=== PATIENT | male | born 1945 | race Caucasian/White ===

== ENCOUNTER 2017-12-13 12:47 | Emergency (ER) | payer MEDICARE ==
[2017-12-13] MEDS: fentaNYL 100 MCG/2 ML INJECTION (J3010) IV (13:42)
[2017-12-13 13:50] LABS: BASO # 0.1 10^3/uL (0.0-0.2); BASO % 0.7 % (0.0-1.0); EOS # 0.2 10^3/uL (0.0-0.50); EOS % 1.8 % (0.0-3.0); HEMATOCRIT 40.3 % (42.0-52.0); HEMOGLOBIN 13.8 g/dl (14.0-18.0); IMMATURE GRANULOCYTE # 0.1 10^3/uL (0-0); IMMATURE GRANULOCYTE % 0.7 % (0-0); LYMPH # 1.9 10^3/uL (1.5-4.5); LYMPH % 21.8 % (24.0-44.0); MEAN CORPUSCULAR HEMOGLOBIN 33.1 pg (27.0-33.0); MEAN CORPUSCULAR HGB CONC 34.2 g/dl (32.0-36.5); MEAN CORPUSCULAR VOLUME 96.6 fl (80.0-96.0); MONO # 0.9 10^3/uL (0.0-0.8); MONO % 9.9 % (0.0-5.0); NEUTROPHILS # 5.8 10^3/uL (1.8-7.7); NEUTROPHILS % 65.1 % (36.0-66.0); PLATELET COUNT, AUTOMATED 277 10^3/uL (150-450); RED BLOOD COUNT 4.17 10^6/uL (4.30-6.10); RED CELL DISTRIBUTION WIDTH 12.7 % (11.5-14.5); WHITE BLOOD COUNT 8.9 10^3/uL (4.0-10.0)
[2017-12-13 14:01] LABS: APPEARANCE, URINE CLEAR (CLEAR); BACTERIA, URINE AUTO NEGATIVE (NEGATIVE); BILIRUBIN, URINE AUTO NEGATIVE (NEGATIVE); BLOOD, URINE BLOOD NEGATIVE (NEGATIVE); COLOR, URINE YELLOW (YELLOW); GLUCOSE, URINE (UA) AUTO NEGATIVE (NEGATIVE); INR 0.97; KETONE, URINE AUTO TRACE mg/dL (NEGATIVE); LEUKOCYTE ESTERASE, URINE AUTO NEGATIVE (NEGATIVE); NITRITE, URINE AUTO NEGATIVE (NEGATIVE); PROTEIN, URINE AUTO NEGATIVE (NEGATIVE); RBC, URINE AUTO 2 /HPF (0-3); SPECIFIC GRAVITY URINE AUTO 1.013 (1.002-1.035); SQUAMOUS EPITHELIAL CELL UR AU 0 /HPF (0-6); UROBILINOGEN, URINE AUTO 0.2 mg/dL (0.0-2.0); WBC, URINE AUTO 0 /HPF (0-3)
[2017-12-13 14:10] LABS: ANION GAP 8 MEQ/L (8-16); BLOOD UREA NITROGEN 17 MG/DL (7-18); CALCIUM LEVEL 8.4 MG/DL (8.8-10.2); CARBON DIOXIDE LEVEL 26 MEQ/L (21-32); CHLORIDE LEVEL 108 MEQ/L (98-107); CREATININE FOR GFR 1.58 MG/DL (0.70-1.30); GLOMERULAR FILTRATION RATE 46.3 (>42); GLUCOSE, FASTING 104 MG/DL (83-110); POTASSIUM SERUM 4.7 MEQ/L (3.5-5.1); SODIUM LEVEL 142 MEQ/L (136-145)
[2017-12-13] MEDS ORDERED: ISOVUE-370 76% 100ML VIAL (Q9967) As Ordered (14:12)
[2017-12-13] MEDS: KETOROLAC 30 MG/ML VIAL (J1885) IV (16:17)
[2017-12-13] MEDS: OXYCODONE/APAP 5MG/325MG(BULK FOR ED) 1 TABLET PO (16:30)
== END 2017-12-13 16:39 | disposition home or self-care (01) ==
LOC: M ED 12:47
DX: M54.9 Dorsalgia, unspecified (principal); N28.9 Disorder of kidney and ureter, unspecified; N40.0 Benign prostatic hyperplasia without lower urinary tract symptoms; M51.26 Other intervertebral disc displacement, lumbar region; F17.200 Nicotine dependence, unspecified, uncomplicated; M51.36 Other intervertebral disc degeneration, lumbar region; N28.1 Cyst of kidney, acquired; J84.112 Idiopathic pulmonary fibrosis; Z79.899 Other long term (current) drug therapy
CPT/HCPCS: Q9967

== ENCOUNTER 2020-06-10 17:34 | Inpatient (IN) | payer MEDICARE ==
[~2020-06-10] VITALS: Ht 170.2 cm; Wt 73.6 kg
[~2020-06-10 17:34] MED LIST: OMEP1CAP73 PO; TERA2CAP3
[2020-06-10] MEDS ORDERED: NS 500 ML IV ONE (18:15)
[2020-06-10] MEDS ORDERED: dexameTHASONE 20MG/5ML VIAL (J1100 PER 1MG) IV ONE (18:15)
[2020-06-10 18:31] LABS: VENOUS BASE EXCESS 0.7 (-2.0-2.0); VENOUS HCO3 26.2 MEQ/L (23.0-27.0); VENOUS O2 SATURATION 68.2 % (60.0-80.0); VENOUS PARTIAL PRESSURE CO2 45.6 mmHg (38.0-50.0); VENOUS PH 7.378 UNITS (7.330-7.430); VENOUS STANDARD HCO3 24.4 MEQ/L; VENOUS TOTAL CO2 27.6 MEQ/L (24.0-28.0)
[2020-06-10 18:34] LABS: BASO % 0.4 % (0.0-1.0); EOS # 0.1 10^3/uL (0.0-0.5); EOS % 1.4 % (0.0-3.0); HEMATOCRIT 39.2 % (42.0-52.0); HEMOGLOBIN 13.2 g/dl (13.5-17.5); LYMPH # 1.6 10^3/uL (1.5-5.0); LYMPH % 15.7 % (24.0-44.0); MEAN CORPUSCULAR HEMOGLOBIN 31.7 pg (27.0-33.0); MEAN CORPUSCULAR HGB CONC 33.7 g/dl (32.0-36.5); MEAN CORPUSCULAR VOLUME 94.2 fl (80.0-96.0); MONO # 1.1 10^3/uL (0.0-0.8); MONO % 10.7 % (0.0-5.0); NEUTROPHILS # 7.3 10^3/uL (1.5-8.5); NEUTROPHILS % 71.4 % (36.0-66.0); PLATELET COUNT, AUTOMATED 315 10^3/uL (150-450); RED BLOOD COUNT 4.16 10^6/uL (4.30-6.10); WHITE BLOOD COUNT 10.2 10^3/uL (4.0-10.0)
[2020-06-10] MEDS: COMBIVENT RESPIMAT 100-20MCG INHALER 4GM INH SCH (18:40)
[2020-06-10 18:51] LABS: INR 0.98; PROTHROMBIN TIME 12.7 SECONDS (11.8-14.0)
[2020-06-10 19:15] LABS: ALBUMIN 3.3 GM/DL (3.2-5.2); BILIRUBIN,DIRECT 0.1 MG/DL (0.0-0.2); BILIRUBIN,TOTAL 0.3 MG/DL (0.2-1.0); THYROID STIMULATING HORMONE 2.53 uIU/ML (0.358-3.740); THYROXINE (T4) 10.4 UG/DL (4.5-12.0); TOTAL PROTEIN 6.8 GM/DL (6.4-8.2)
[2020-06-10] MEDS ORDERED: MELO15TA28 PO (19:28)
[2020-06-10] MEDS ORDERED: TERA5CAP3 PO (19:28)
[2020-06-10] MEDS ORDERED: LEVALBUTEROL 1.25 MG/0.5 ML CONCENTRATE NEB INH PRN (22:45)
[2020-06-10] MEDS ORDERED: FUROSEMIDE 40MG/4ML VIAL (J1940) IV ONE (22:45)
--- NOTE | 2020-06-10 22:58 | HPEPDOC ---
General Date of Admission Jun 10, 2020 at 22:31 Date of Service: Jun 10, 2020 Chief Complaint The patient is a 74-year-old male Who presented to the hospital with complaints of shortness of breath History of Present Illness Patient is a 74-year-old male with a PMHx of Seasonal allergies, GERD / Hiatal hernia . Presented to the hospital with complaints of shortness of breath. Patient notes that hes been experiencing progressive shortness of breath over the duration of one month. Patient reports that hes been experiencing a cough with clear sputum. Denies any blood. Denies any chest pain or palpitations. Denies any recent fevers or chills. Denies any lower extremity swelling. Patient denies any nausea or vomiting. Does report some abdominal discomfort that he attributes to his hiatal hernia has reported some constipation. His most recent bowel movement was Thursday. Denies any urinary discomfort. Patient has followed up with surgery recently for his hiatal hernia. Reports loss of appetite and decrease in his weight. Home Medications Scheduled Meloxicam (Meloxicam) 15 Mg Tablet, 15 MG PO DAILY, (Reported) Omeprazole (Omeprazole) 20 Mg Cap, 20 MG PO QAM, (Reported) Terazosin HCl (Terazosin HCl) 5 Mg Capsule, 5 MG PO QPM, (Reported) Allergies Coded Allergies: No Known Allergies (Verified Allergy, Unknown, 06/10/20) Past Medical History Medical History Seasonal allergies GERD / Hiatal hernia Surgical History Cervical neck surgery s/p repair Reports multiple fingers were fractured Ingrown toenail surgery bilaterally Family History - Family history reviewed and noncontributory Social History - Denies the use of illicit drugs; patient reports that hes a smoker of greater than 30 years, but has reduced his cigarette consumption; her port social alcohol use - Denies recent travel or sick contacts - Lives alone - 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; 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 Vital Signs - Vitals: BP [160/98], HR [88], RR [18], Sat [98%NC2L], Temp [96.2F] - General: Lying in bed, Speaking in full sentences, awake / alert / oriented x3 - HEENT: NC, AT, PERRLA - CVS: RRR, +S1S2 - Lungs: Fair air entry bilaterally, No appreciable wheezing, but bilateral lower lung crackles noted, - Abdomen: Soft, Non-distended, Mild tenderness at epigastrium - Extremities: No lower extremity edema, No calf tenderness - Neuro: No focal motor or sensory deficit - Skin: No visible rashes Laboratory Data Labs 24H Laboratory Tests 2 06/10/20 18:24: Immature Granulocyte % (Auto) 0.4, Neutrophils (%) (Auto) 71.4H, Lymphocytes (%) (Auto) 15.7L, Monocytes (%) (Auto) 10.7H, Eosinophils (%) (Auto) 1.4, Basophils (%) (Auto) 0.4, Neutrophils # (Auto) 7.3, Lymphocytes # (Auto) 1.6, Monocytes # (Auto) 1.1H, Eosinophils # (Auto) 0.1, Basophils # (Auto) 0.0, Nucleated Red Blood Cells % (auto) 0.0, Prothrombin Time 12.7, Prothromb Time International Ratio 0.98, Blood Gas Bicarbonate Standard 24.4, Venous Blood pH 7.378, Venous Blood Partial Pressure CO2 45.6, Venous Blood Partial Pressure O2 34.0, Venous Blood Total Carbon Dioxide 27.6, Venous Blood HCO3 26.2, Venous Blood Oxygen Saturation 68.2, Venous Blood Base Excess 0.7, Total Bilirubin 0.3, Direct Bilirubin 0.1, Aspartate Amino Transf (AST/SGOT) 34, Alanine Aminotransferase (ALT/SGPT) 40, Alkaline Phosphatase 89, ZO-Srd-X-Type Natriuretic Peptide 491H, Total Protein 6.8, Albumin 3.3, Albumin/Globulin Ratio 0.9, Thyroid Stimulating Hormone (TSH) 2.530, Thyroxine (T4) 10.4 06/10/20 18:28: POC Troponin I (Misc) 0.01 06/10/20 18:31: POC Glucose (Misc Panel) 114H, POC Sodium (Misc Panel) 134L, POC Potassium (Misc Panel) 3.9, POC Chloride (Misc Panel) 99, POC Total CO2 (Misc Panel) 23.0, POC Blood Urea Nitrogen (Misc Panel 18, POC Ionized Calcium (Misc Panel) 4.7, POC Creatinine (Misc Panel) 0.9, POC Hematocrit (Misc Panel) 42.0 06/10/20 22:20: Lipase 64L CBC/BMP Laboratory Tests 06/10/20 18:24 Microbiology Microbiology 06/10/20 Blood Culture, Received Pending 06/10/20 Blood Culture, Received Pending Plan / VTE VTE Prophylaxis Ordered?: Yes Plan Plan Shortness of breath - possibly 2/2 fluid overload, possibly 2/2 COPD - Presented to the hospital with complaints of shortness of breath slowly progressive over one month - She reports an associated cough with clear sputum - Physical reveals bibasilar crackles - BNP elevated - CXR reveals vascular congestion - Troponin negative - EKG reviewed - Will Check CT chest / ECHO / Telemetry monitoring / Strict ins-outs / Daily weight / Fluid restriction - Will give single dose of Furosemide and assess urine output - Will start inhaled therapy Abdominal pain - Hx of GERD / Hiatal hernia - Physical reveals epigastric tenderness - Will check CT abdomen / Lipase - Will c/w Omeprazole Seasonal allergies - Currently non on any medications BPH - c/w Terazosin DVT prophylaxis - Will start Lovenox Review of Systems Other Systems 10 point review of systems complete, all negative otherwise stated in HPI NADEEM LOWE MD Jun 10, 2020 22:58
[2020-06-10] MEDS: GASTROGRAFIN SOLUTION 30ML PO SCH ×2 (23:20→23:45)
[2020-06-11] MEDS: LEVALBUTEROL 1.25 MG/0.5 ML CONCENTRATE NEB INH SCH ×7 (00:47→23:12)
[2020-06-11] MEDS: COMBIVENT RESPIMAT 100-20MCG INHALER 4GM INH SCH ×2 (00:47→00:48)
--- NOTE | 2020-06-11 01:56 | REPVR ---
PROCEDURE INFORMATION: Exam: CT Abdomen And Pelvis Without Contrast Exam date and time: 06/11/2020 1:02 AM Age: 74 years old Clinical indication: Abdominal pain TECHNIQUE: Imaging protocol: Computed tomography of the abdomen and pelvis without contrast. Radiation optimization: All CT scans at this facility use at least one of these dose optimization techniques: automated exposure control; mA and/or kV adjustment per patient size (includes targeted exams where dose is matched to clinical indication); or iterative reconstruction. COMPARISON: CT ABD PELVIS WITH CONTRAST 2017-12-13 14:13 FINDINGS: Limitations: Study is limited by the absence of contrast. Mediastinal space: Large hiatal hernia, majority of the stomach is in the mediastinum and left chest. Liver: Multiple hypodense lesions in the liver, largest measures approximately 4 cm, evidence for liver metastases into proven otherwise. Gallbladder and bile ducts: Normal. No calcified stones. No ductal dilation. Pancreas: Minimal stranding adjacent to the pancreatic head, uncinate process, and duodenum, correlate for pancreatitis or mild duodenitis. Spleen: Normal. No splenomegaly. Adrenals: Normal. No mass. Kidneys and ureters: Large right renal extrarenal pelvis. Minimal right hydroureter with a small punctate calcification in the bladder at the right vesicoureteral junction, could be already passed, or partially obstructive. Left kidney extrarenal pelvis. 11 mm cyst in the left kidney. 7 cm right renal cyst. Stomach and bowel: Consider prone imaging, ultrasound, cystogram, or recommend urology consultation to exclude mucosal neoplasm. Mild colonic diverticulosis without evidence for acute diverticulitis. Appendix: No evidence of appendicitis. Intraperitoneal space: Unremarkable. No free air. No significant fluid collection. Vasculature: Tortuous aorta. Lymph nodes: Unremarkable. No enlarged lymph nodes. Bladder: Left posterior inferior bladder Hutch diverticulum measuring 5 cm. Layering hyperdensity in the right aspect of the bladder versus bladder wall hyperdense thickening. Small punctate calcification in the bladder. Reproductive: Unremarkable as visualized. Bones/joints: No destructive lytic or blastic bony lesions. Soft tissues: Unremarkable. IMPRESSION: 1. Large hiatal hernia, majority of the stomach is in the mediastinum and left chest. 2. Multiple hypodense lesions in the liver, largest measures approximately 4 cm, evidence for liver metastases into proven otherwise. Study limited without contrast. 3. Layering hyperdensity in the right aspect of the bladder versus bladder wall hyperdense thickening. Consider prone imaging, ultrasound, cystogram, or recommend urology consultation to exclude mucosal neoplasm. 4. Large right renal extrarenal pelvis. Minimal right hydroureter with a small punctate calcification in the bladder at the right vesicoureteral junction, could be already passed, or partially obstructive. 5. Minimal stranding adjacent to the pancreatic head, uncinate process, and duodenum, correlate for pancreatitis or mild duodenitis. Electronically signed by: Serg Carroll On 06/11/2020 01:56:05 AM
[2020-06-11 02:20] VITALS: BP 151/97
--- NOTE | 2020-06-11 02:23 | REPVR ---
PROCEDURE INFORMATION: Exam: CT Chest Without Contrast Exam date and time: 06/11/2020 1:02 AM Age: 74 years old Clinical indication: Chest pain; Additional info: SOB TECHNIQUE: Imaging protocol: Computed tomography of the chest without contrast. Radiation optimization: All CT scans at this facility use at least one of these dose optimization techniques: automated exposure control; mA and/or kV adjustment per patient size (includes targeted exams where dose is matched to clinical indication); or iterative reconstruction. COMPARISON: CR PORTABLE CHEST X-RAY 06/10/2020 6:12 PM. 06/11/2020 abdominal/pelvic CT. FINDINGS: Lungs: Chronic interstitial lung disease with subchondral cystic cystic changes and interstitial thickening. Multiple areas of masslike subpleural consolidation in both lungs. Largest area of consolidation in the right lower lobe measures approximately 6.2 cm. Pleural space: Trace right pleural effusion. No pneumothorax. Heart: Unremarkable. No cardiomegaly. No pericardial effusion. Mediastinal space: Conglomerate subcarinal ariana mass measures approximately 5.3 x 2.5 cm. There is a large complex hiatal hernia. Aorta: Unremarkable. No aortic aneurysm. Lymph nodes: Mediastinal adenopathy is present. Enlarged paratracheal node measures 2.3 cm. Other enlarged upper mediastinal lymph nodes and small hilar lymph nodes are noted. Pancreas: 5.0 cm pancreatic head mass encasing the inferior vena cava is unchanged. Bones/joints: Skeletal degenerative changes are noted. Chronic appearing compression fracture of the L1 vertebral body. Soft tissues: Unremarkable. IMPRESSION: 1. Advanced chronic interstitial lung disease. 2. Multiple areas of masslike airspace consolidation may be secondary to multifocal pneumonia, progressive massive fibrosis, or neoplasm. 3. Stable appearance of pancreatic head mass and multiple liver masses. 4. Large hiatal hernia. Electronically signed by: Johan Troncoso On 06/11/2020 02:23:19 AM
[2020-06-11 06:00] VITALS: BP 133/89
[2020-06-11] MEDS: methylPREDNISolone 125MG 2ML VIAL IV SCH ×2 (06:27→13:49)
[2020-06-11 06:58] LABS: BASO % 0.1 % (0.0-1.0); HEMATOCRIT 38.6 % (42.0-52.0); HEMOGLOBIN 13.2 g/dl (13.5-17.5); LYMPH # 1.3 10^3/uL (1.5-5.0); LYMPH % 12.7 % (24.0-44.0); MEAN CORPUSCULAR HGB CONC 34.2 g/dl (32.0-36.5); MEAN CORPUSCULAR VOLUME 93.5 fl (80.0-96.0); MONO # 0.8 10^3/uL (0.0-0.8); MONO % 7.5 % (0.0-5.0); NEUTROPHILS # 8.2 10^3/uL (1.5-8.5); PLATELET COUNT, AUTOMATED 331 10^3/uL (150-450); RED BLOOD COUNT 4.13 10^6/uL (4.30-6.10); WHITE BLOOD COUNT 10.3 10^3/uL (4.0-10.0)
[2020-06-11 07:27] LABS: BLOOD UREA NITROGEN 19 MG/DL (7-18); CALCIUM LEVEL 8.8 MG/DL (8.8-10.2); CARBON DIOXIDE LEVEL 27 MEQ/L (21-32); CHLORIDE LEVEL 99 MEQ/L (98-107); CREATININE FOR GFR 1.09 MG/DL (0.70-1.30); GLOMERULAR FILTRATION RATE > 60.0 (>42); GLUCOSE, FASTING 120 MG/DL (70-100); MAGNESIUM LEVEL 2.2 MG/DL (1.8-2.4); POTASSIUM SERUM 3.9 MEQ/L (3.5-5.1); SODIUM LEVEL 132 MEQ/L (136-145)
--- NOTE | 2020-06-11 08:13 | REP ---
Clinical: Cough and dyspnea. Comparison: None. Findings: Advanced COPD and subpleural fibrotic changes are suggested along with suspected superimposed bibasilar infiltrates (right greater than left). No obvious effusion. No pneumothorax. Mediastinum and cardiac silhouette are grossly unremarkable. Incidental large hiatal hernia noted. Skeletal structures demonstrate age-related degenerative changes. Impression: Advanced chronic changes. Superimposed bibasilar infiltrates (right greater than left). Electronically Signed by Smith Shelton MD 06/11/2020 08:05 A
[2020-06-11] MEDS ORDERED: ISOVUE-370 76% 100ML VIAL As Ordered ONE (08:34)
[2020-06-11] MEDS ORDERED: ENOXAPARIN 30MG/0.3ML SYRINGE (J1650 PER 10MG) SC SCH (09:00)
[2020-06-11] MEDS ORDERED: OMEPRAZOLE 20 MG CAP PO SCH (09:00)
--- NOTE | 2020-06-11 09:37 | REP ---
Clinical: Hepatic metastatic disease. Technique: Axial contrast enhanced images from the lung bases to the pubic symphysis using oral (per protocol) and 100 ml Isovue 370 intravenous contrast material with coronal and sagittal re-formations. Comparison: 12/13/2017. Findings: Lung bases demonstrate ill-defined area of consolidation in the right lower lobe measuring approximately 6.7 cm maximal diameter along with diffuse advanced the fibrosis and scarring. Liver includes innumerable heterogeneous enhancing lesions consistent with metastatic disease measuring up to 6.1 cm diameter. There is a heterogeneous mass/conglomerate adenopathy in the upper abdomen extending from the area of the ирина hepatis and insinuating between in the IVC and aorta measuring roughly 5.5 cm (images 28 - 46) as well as retroperitoneal adenopathy measuring up to approximately 3.3 cm maximal diameter (images 47 - 55). Spleen, pancreas, gallbladder, and bilateral adrenal glands appear normal. The kidneys demonstrate multiple bilateral cysts (right greater than left) along with age-related cortical thinning/scarring. Large paraesophageal gastric hiatal hernia is identified elements of gastric wall thickening. Remainder of the enteric system is grossly unremarkable. Evaluation of the pelvis demonstrates distended bladder with left posterior diverticulum currently measuring approximately 5.2 cm maximal diameter as well as mildly enlarged heterogeneous prostate gland. No ascites. No free air. Atherosclerotic changes to the aorta and vasculature noted without aneurysm or dissection. Osseous structures demonstrate age-related changes without obvious acute osseous abnormality. Impression: 1. Large diffuse hepatic metastatic disease along with mass/conglomerate adenopathy extending from the region of the ирина hepatis inferiorly and retroperitoneal adenopathy. 2. Large paraesophageal gastric hiatal hernia. 3. Lung base findings as described above. 4. Distended bladder with posterior diverticulum and mild prostatomegaly. Electronically Signed by Smith Shelton MD 06/11/2020 09:28 A
--- NOTE | 2020-06-11 09:44 | REP ---
Clinical: Lung mass. Technique: Axial contrast enhanced images from the lung bases to the pubic symphysis (followed by CT of the abdomen and pelvis) using 100 ml Isovue 370 intravenous contrast material with coronal and sagittal re-formations. Comparison: 06/11/2020 at 01:03 a.m. Findings: Marked mediastinal and right hilar adenopathy is appreciated including subcarinal ariana mass measuring greater than 5 cm diameter. 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 Underlying advanced emphysematous disease and idiopathic fibrosis noted bilaterally. No significant effusion. No pneumothorax. Atherosclerotic changes to the thoracic aorta and coronary arteries noted without aortic aneurysm/dissection or cardiomegaly. No pericardial effusion. Tracheobronchial tree remains patent. Surrounding osseous structures demonstrate age-related changes without obvious acute osseous lesion. Impression: 1. Marked mediastinal and right hilar adenopathy along with suspected right lower lobe mass / consolidation. 2. Advanced chronic emphysematous disease and fibrosis/scarring. Electronically Signed by Smith Shelton MD 06/11/2020 09:34 A
[2020-06-11 14:00] VITALS: BP 120/80
[2020-06-11] MEDS ORDERED: LevoFLOXacin IV 750 MG in IV 1 EA IV SCH (16:00)
--- NOTE | 2020-06-11 19:01 | IPNPDOC ---
Text Note Date of Service The patient was seen on 06/11/20. NOTE SUBJECTIVE: Patient was seen and examined this morning lying comfortably in bed. He states he is not currently feeling short of breath and denies any chest pain or abdominal pain. No fevers overnight. OBJECTIVE: VITAL SIGNS: See below GENERAL: Alert, comfortable, in no acute distress HEENT: Normocephalic, atraumatic, PERRLA, EOMI, moist mucous membranes NECK: Supple, trachea midline, no lymphadenopathy, no JVD CARDIOVASCULAR: Regular rate and rhythm, normal S1 and S2 RESPIRATORY: Bibasilar crackles noted bilaterally, otherwise upper lung de guzman are clear to auscultation bilaterally ABDOMEN: Soft, nontender, nondistended, bowel sounds present EXTREMITIES: No cyanosis or edema. Pulses 2+/4 in bilateral upper and lower extremities SKIN: [place], warm, dry NEUROLOGIC: Alert and oriented x3 to person, place and time. No focal deficits appreciated PSYCHIATRIC: Mood and affect appropriate ASSESSMENT/PLAN: 74-year-old male who presented with shortness of breath, admitted with possible new cancer with liver metastasis # Shortness of breath secondary to pneumonia versus new lung mass. Chest CT reveals possible mass in the right lower lobe versus consolidation. IV Levaquin for antibiotic coverage to #1, blood cultures pending, sputum culture pending, aspiration precautions Has underlying COPD, which could contribute to shortness of breath, no wheezing on exam, so COPD exacerbation unlikely, discontinued oral steroids. # Multiple new liver lesions concerning for metastasis Biopsy pending # GERD - continue omeprazole # BPH. Continue home terazosin DVT prophylaxis: Subcutaneous Lovenox Disposition: Pending clinical improvement I, Isrrael Leija, have independently examined this patient and performed my own physical exam, as well as reviewed the documentation. I have discussed in detail with the resident / student the findings and plan of treatment as documented by the resident / student. I agree with their findings and treatment plan. I will continue to follow the patient during this hospital stay. VS,Fishbone, I+O VS, Fishbone, I+O Laboratory Tests 06/11/20 06:39 Vital Signs Date Time Temp Pulse Resp B/P (MAP) Pulse Ox O2 Delivery O2 Flow Rate FiO2 06/11/20 14:00 98.0 120 18 120/80 (93) 96 Room Air 06/11/20 06:00 1.0 I&O- Last 24 Hours up to 6 AM 06/11/20 06:00 Intake Total 500 ml Output Total 1000 ml Balance -500 ml WHITNEY RITCHIE D.O. Jun 11, 2020 19:01 ISRRAEL LEIJA DO Jun 12, 2020 16:44
[2020-06-11 20:45] VITALS: BP 130/100
[2020-06-11 20:47] VITALS: BP 130/100
[2020-06-11] MEDS ORDERED: TERAZOSIN 5 MG CAP PO SCH (21:00)
[2020-06-11 21:38] VITALS: BP 120/78
[2020-06-12] MEDS: LEVALBUTEROL 1.25 MG/0.5 ML CONCENTRATE NEB INH SCH ×2 (04:00→07:26)
[2020-06-12 06:00] VITALS: BP 136/82
[2020-06-12 06:13] LABS: BASO % 0.1 % (0.0-1.0); EOS % 0.1 % (0.0-3.0); HEMATOCRIT 36.7 % (42.0-52.0); HEMOGLOBIN 12.5 g/dl (13.5-17.5); LYMPH % 15.4 % (24.0-44.0); MEAN CORPUSCULAR HEMOGLOBIN 31.9 pg (27.0-33.0); MEAN CORPUSCULAR HGB CONC 34.1 g/dl (32.0-36.5); MEAN CORPUSCULAR VOLUME 93.6 fl (80.0-96.0); MONO # 1.4 10^3/uL (0.0-0.8); MONO % 10.8 % (0.0-5.0); NEUTROPHILS # 9.4 10^3/uL (1.5-8.5); PLATELET COUNT, AUTOMATED 343 10^3/uL (150-450); RED BLOOD COUNT 3.92 10^6/uL (4.30-6.10); WHITE BLOOD COUNT 12.8 10^3/uL (4.0-10.0)
[2020-06-12 06:29] LABS: BLOOD UREA NITROGEN 25 MG/DL (7-18); CARBON DIOXIDE LEVEL 25 MEQ/L (21-32); CHLORIDE LEVEL 102 MEQ/L (98-107); CREATININE FOR GFR 1.03 MG/DL (0.70-1.30); GLOMERULAR FILTRATION RATE > 60.0 (>42); GLUCOSE, FASTING 113 MG/DL (70-100); MAGNESIUM LEVEL 2.2 MG/DL (1.8-2.4); SODIUM LEVEL 137 MEQ/L (136-145)
--- NOTE | 2020-06-12 07:02 | ECGEPIP ---
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
--- NOTE | 2020-06-12 17:30 | DS.PDOC ---
Discharge Summary General Date of Admission Jun 10, 2020 at 22:31 Date of Discharge 06/12/2020 Attending Physician: BE QUEEN DO Discharge Summary PROCEDURES PERFORMED DURING STAY: None. ADMITTING DIAGNOSES: 1. Shortness of breath secondary to fluid overload versus COPD 2. Abdominal pain. 3. GERD 4. BPH DISCHARGE DIAGNOSES: 1. Short of breath secondary to pneumonia versus new lung mass. 2. Multiple new liver lesions concerning for metastasis. 3. GERD 4. BPH COMPLICATIONS/CHIEF COMPLAINT: Dyspnea. HISTORY OF PRESENT ILLNESS: 74-year-old male who presented to the hospital with progressive shortness of breath over the past one month. He also complained of a cough productive of clear sputum, no hemoptysis. He denied any chest pain or palpitations. No recent fevers or chills. No lower extremity edema. He also complained of some abdominal discomfort which future beats to his history of hiatal hernia. He also notes he has been somewhat constipated recently. He denie s any nausea or vomiting. No urinary discomfort. He has also noticed a loss of appetite recently and a decrease in his weight, although this is not quantified. HOSPITAL COURSE: Patient was admitted to the hospital and given a dose of Lasix for possible fluid overload. He was also placed on a fluid restriction and an echocardiogram was ordered. A CT chest was also ordered to follow-up on abnormal chest x-ray. He was also started on Solu-Medrol and Xopenex inhalers for possible COPD. The CT chest without contrast revealed findings described below, concerning for pneumonia versus massive fibrosis versus neoplasm. He was started on antibiotics with IV Levaquin. Procalcitonin was ordered to help rule in pneumonia. Solu-Medrol was discontinued, as he did not have any wheezing on exam. A CT chest with contrast was ordered to better distinguish between a neoplastic mass versus infiltrate, results also described below. The patient also had a CT of his abdomen and pelvis for his abdominal discomfort which revealed the findings described below, concerning for metastatic liver lesions. A liver biopsy was ordered and scheduled. Heart rate the patient left AGAINST MEDICAL ADVICE prior to having the biopsy done. The patient was warned of the possible risks of leaving AGAINST MEDICAL ADVICE and the then fits of staying in the hospital for continued workup and treatment of this potentially new. He diagnosed metastatic cancer. However, the patient insisted that he would leave AGAINST MEDICAL ADVICE. He was deemed to have capacity to make this decision and himself signed out AMA. DISCHARGE MEDICATIONS: Please see below. ALLERGIES: Please see below. PHYSICAL EXAMINATION ON DISCHARGE: VITAL SIGNS: Please see below. Unable to examine patient prior to discharge as he left AMA. LABORATORY DATA: Please see below. IMAGING: - CXR: Advanced chronic changes. Superimposed bibasilar infiltrates (right greater than left). - CT abdomen/pelvis: 1. Large hiatal hernia, majority of the stomach is in the mediastinum and left chest. 2. Multiple hypodense lesions in the liver, largest measures approximately 4 cm, evidence for liver metastases into proven otherwise. Study limited without contrast. 3. Layering hyperdensity in the right aspect of the bladder versus bladder wall hyperdense thickening. Consider prone imaging, ultrasound, cystogram, or recommend urology consultation to exclude mucosal neoplasm. 4. Large right renal extrarenal pelvis. Minimal right hydroureter with a small punctate calcification in the bladder at the right vesicoureteral junction, could be already passed, or partially obstructive. 5. Minimal stranding adjacent to the pancreatic head, uncinate process, and duodenum, correlate for pancreatitis or mild duodenitis. -CT Chest: 1. Advanced chronic interstitial lung disease. 2. Multiple areas of masslike airspace consolidation may be secondary to multifocal pneumonia, progressive massive fibrosis, or neoplasm. 3. Stable appearance of pancreatic head mass and multiple liver masses. 4. Large hiatal hernia. -CT abdomen/pelvis with contrast: 1. Large diffuse hepatic metastatic disease along with mass/conglomerate adenopathy extending from the region of the ирина hepatis inferiorly and retroperitoneal adenopathy. 2. Large paraesophageal gastric hiatal hernia. 3. Lung base findings as described above. 4. Distended bladder with posterior diverticulum and mild prostatomegaly. -CT chest with contrast: 1. Marked mediastinal and right hilar adenopathy along with suspected right lower lobe mass / consolidation. 2. Advanced chronic emphysematous disease and fibrosis/scarring. PROGNOSIS: Poor, patient left AMA without biopsy of new likely metastatic cancer DISPOSITION: Against Medical Advice. DISCHARGE CONDITION: Not stable. TIME SPENT ON DISCHARGE: Greater than 35 minutes. Vital Signs/I&Os Vital Signs Date Time Temp Pulse Resp B/P (MAP) Pulse Ox O2 Delivery O2 Flow Rate FiO2 06/12/20 06:00 97.8 107 18 136/82 (100) 94 Room Air 06/11/20 06:00 1.0 I&O- Last 24 Hours up to 6 AM 06/12/20 06:00 Intake Total 1050 ml Output Total 850 ml Balance 200 ml Laboratory Data Labs 24H Laboratory Tests 2 06/12/20 05:54: Immature Granulocyte % (Auto) 0.6, Neutrophils (%) (Auto) 73.0H, Lymphocytes (%) (Auto) 15.4L, Monocytes (%) (Auto) 10.8H, Eosinophils (%) (Auto) 0.1, Basophils (%) (Auto) 0.1, Neutrophils # (Auto) 9.4H, Lymphocytes # (Auto) 2.0, Monocytes # (Auto) 1.4H, Eosinophils # (Auto) 0.0, Basophils # (Auto) 0.0, Nucleated Red Blood Cells % (auto) 0.0, Anion Gap 10, Glomerular Filtration Rate > 60.0, Calcium Level 9.0, Magnesium Level 2.2 CBC/BMP Laboratory Tests 06/12/20 05:54 Microbiology Microbiology 06/11/20 Blood Culture - Preliminary, Resulted No growth after 24 hours . All specim... 06/10/20 Blood Culture - Preliminary, Resulted No growth after 24 hours . All specim... 06/10/20 Blood Culture - Preliminary, Resulted No growth after 24 hours . All specim... Discharge Medications Scheduled Meloxicam (Meloxicam) 15 Mg Tablet, 15 MG PO DAILY, (Reported) Omeprazole (Omeprazole) 20 Mg Cap, 20 MG PO QAM, (Reported) Terazosin HCl (Terazosin HCl) 5 Mg Capsule, 5 MG PO QPM, (Reported) Allergies Coded Allergies: No Known Allergies (Verified Allergy, Unknown, 06/10/20) WHITNEY RITCHIE D.O. Jun 12, 2020 17:30
--- NOTE | 2020-06-14 08:51 | ECHO ---
DATE OF STUDY: 06/11/2020 REFERRING PHYSICIAN: Dr. Winnie Zamora INDICATION: Dyspnea. HEIGHT: 193 cm. WEIGHT: 80 kg. 2-D MEASUREMENTS: Aortic root: 3.9 cm Proximal ascending aorta: 4.0 cm Ventricular septum: 1.05 cm Posterior wall: 1.13 cm Left ventricle diastole: 4.1 cm Left atrium: 3.6 cm Inferior vena cava: 1.2 cm with more than 50% respiratory variation. Suggestive of central venous pressure of 5 mmHg. DOPPLER MEASUREMENTS: No aortic stenosis No aortic regurgitation No mitral regurgitation No mitral stenosis Mild tricuspid regurgitation No pulmonic regurgitation Aortic valve velocity: 102 cm/sec LVOT velocity: 66.6 cm/sec Mitral A velocity (fusion of E wave and A wave): 109 cm/sec Estimated right ventricular systolic pressure 32 mmHg assuming a right atrial pressure of 5 mmHg Pulmonary acceleration time: 98 ms consistent with mild elevation of pulmonary artery systolic pressure MITRAL ANNULAR TISSUE DOPPLER: E prime septal: 5.1 cm/sec E prime lateral: 13.8 cm/sec DESCRIPTION: The rhythm was sinus tachycardia. This was a moderately technically difficult echocardiogram. This was a 2-D, M-mode, color flow Doppler and pulse wave Doppler examination and included mitral annular tissue Doppler. CONCLUSIONS: 1. Hyperdynamic left ventricle systolic function. Left ventricle ejection fraction 75% by visual estimate. LV diastolic function could not be determined on the study due to sinus tachycardia with fusion of the rapid filling phase with the atrial filling phase. No obvious regional wall motion abnormalities. Hyperdynamic right ventricle systolic function. Appearance of normal right ventricle size. 2. Mild dilatation of the aortic root at the level of the sinus of Valsalva and proximal ascending aorta. 3. Mild aortic valve sclerosis of a 3-cuspid aortic valve. No aortic regurgitation. 4. Tiny pericardial effusion. 5. Suggestive of mild elevation of estimated right ventricle systolic pressure. Central venous pressure estimated to be 5 mmHg. MTDD
== END 2020-06-12 08:38 | disposition left against medical advice (07) | DRG 195 ==
LOC: M ED 17:34 → EDBD 17:34 → M ED INP 22:31 → M MSPAV 06-11 02:15
PROVIDERS: ADMIT Internal Medicine; ATTEND Internal Medicine
DX: J18.9 Pneumonia, unspecified organism (principal); R91.8 Other nonspecific abnormal finding of lung field; K76.9 Liver disease, unspecified; K21.9 Gastro-esophageal reflux disease without esophagitis; N40.0 Benign prostatic hyperplasia without lower urinary tract symptoms; K44.9 Diaphragmatic hernia without obstruction or gangrene; Z79.899 Other long term (current) drug therapy; F17.210 Nicotine dependence, cigarettes, uncomplicated

== ENCOUNTER 2020-06-17 17:03 | Inpatient (IN) | payer MEDICARE ==
[~2020-06-17 17:03] MED LIST changes: +MELO15TA28 PO; +TERA5CAP3 PO
[2020-06-17] MEDS ORDERED: AZITHROMYCIN INJ 500MG VIAL (J0456 PER 500MG) As Ordered ONE (21:39)
[2020-06-17] MEDS ORDERED: cefTRIAXone SOD 1GM VIAL (J0696 PER 250MG) As Ordered ONE (21:39)
[2020-06-18] MEDS ORDERED: TAMSULOSIN 0.4 MG CAP ONE (04:07)
[2020-06-18] MEDS ORDERED: ACETAMINOPHEN TAB 650MG DOSE (2X325MG) ONE (04:07)
[2020-06-18] MEDS ORDERED: HEPARIN SOD (PORCINE) 5000UNITS/ML 1ML VIAL/SYRINGE ONE ×3 (04:07→09:53)
[2020-06-18] MEDS ORDERED: HEPARIN SOD (PORCINE) 5000UNITS/ML 1ML VIAL/SYRINGE As Ordered ONE ×3 (08:11→21:53)
[2020-06-18] MEDS ORDERED: cefTRIAXone SOD 1GM VIAL (J0696 PER 250MG) ONE (09:53)
[2020-06-18] MEDS ORDERED: AZITHROMYCIN INJ 500MG VIAL (J0456 PER 500MG) ONE (09:53)
[2020-06-18] MEDS ORDERED: ACETAMINOPHEN TAB 650MG DOSE (2X325MG) As Ordered ONE (16:22)
[2020-06-18] MEDS ORDERED: TAMSULOSIN 0.4 MG CAP As Ordered ONE (18:55)
[2020-06-18] MEDS ORDERED: cefTRIAXone SOD 1GM VIAL (J0696 PER 250MG) As Ordered ONE (21:54)
[2020-06-18] MEDS ORDERED: AZITHROMYCIN INJ 500MG VIAL (J0456 PER 500MG) As Ordered ONE (22:29)
[2020-06-19] MEDS ORDERED: ACETAMINOPHEN 325 MG TAB As Ordered ONE (02:32)
[2020-06-19] MEDS ORDERED: HEPARIN SOD (PORCINE) 5000UNITS/ML 1ML VIAL/SYRINGE As Ordered ONE ×3 (06:08→22:03)
[2020-06-19] MEDS ORDERED: TERAZOSIN 5 MG CAP ONE (11:00)
[2020-06-19] MEDS ORDERED: ACETAMINOPHEN TAB 650MG DOSE (2X325MG) As Ordered ONE (12:03)
[2020-06-19] MEDS ORDERED: OMEPRAZOLE 20 MG CAP As Ordered ONE (22:03)
[2020-06-19] MEDS ORDERED: cefTRIAXone SOD 1GM VIAL (J0696 PER 250MG) As Ordered ONE (22:04)
[2020-06-19] MEDS ORDERED: AZITHROMYCIN INJ 500MG VIAL (J0456 PER 500MG) As Ordered ONE (23:57)
[2020-06-20] MEDS ORDERED: LIDOCAINE 1% MDV 20ML VIAL As Ordered ONE (10:39)
[2020-06-20] MEDS ORDERED: TERAZOSIN 5 MG CAP ONE (13:00)
[2020-06-20] MEDS ORDERED: LACTULOSE 20 GM/30 ML SYRUP UD As Ordered ONE (18:03)
[2020-06-20] MEDS ORDERED: NORCO, ANEXSIA 5/325MG TABLET (HYDROcodone/ACETAMINOPHEN) As Ordered ONE (18:03)
[2020-06-20] MEDS ORDERED: DOCUSATE SODIUM 100 MG CAP As Ordered ONE (21:52)
[2020-06-20] MEDS ORDERED: cefTRIAXone SOD 1GM VIAL (J0696 PER 250MG) As Ordered ONE (21:53)
[2020-06-20] MEDS ORDERED: AZITHROMYCIN INJ 500MG VIAL (J0456 PER 500MG) As Ordered ONE (22:50)
[2020-06-21] MEDS ORDERED: HEPARIN SOD (PORCINE) 5000UNITS/ML 1ML VIAL/SYRINGE As Ordered ONE ×2 (07:04→21:21)
[2020-06-21] MEDS ORDERED: OMEPRAZOLE 20 MG CAP As Ordered ONE (09:05)
[2020-06-21] MEDS ORDERED: DOCUSATE SODIUM 100 MG CAP ONE (09:05)
[2020-06-21] MEDS ORDERED: DOCUSATE SODIUM 100 MG CAP As Ordered ONE ×2 (09:05→21:13)
[2020-06-21] MEDS ORDERED: OMEPRAZOLE 20 MG CAP ONE (09:05)
[2020-06-21] MEDS ORDERED: NORCO, ANEXSIA 5/325MG TABLET (HYDROcodone/ACETAMINOPHEN) As Ordered ONE (14:56)
[2020-06-21] MEDS ORDERED: NORCO, ANEXSIA 5/325MG TABLET (HYDROcodone/ACETAMINOPHEN) ONE (14:56)
[2020-06-21] MEDS ORDERED: cefTRIAXone SOD 1GM VIAL (J0696 PER 250MG) As Ordered ONE (21:13)
[2020-06-21] MEDS ORDERED: TAMSULOSIN 0.4 MG CAP As Ordered ONE (22:27)
[2020-06-21] MEDS ORDERED: AZITHROMYCIN INJ 500MG VIAL (J0456 PER 500MG) As Ordered ONE (22:27)
[2020-06-22] MEDS ORDERED: NORCO, ANEXSIA 5/325MG TABLET (HYDROcodone/ACETAMINOPHEN) As Ordered ONE ×3 (03:04→18:22)
[2020-06-22] MEDS ORDERED: HEPARIN SOD (PORCINE) 5000UNITS/ML 1ML VIAL/SYRINGE As Ordered ONE ×3 (05:52→21:04)
[2020-06-22] MEDS ORDERED: OMEPRAZOLE 20 MG CAP As Ordered ONE (08:46)
[2020-06-22] MEDS ORDERED: DOCUSATE SODIUM 100 MG CAP As Ordered ONE ×2 (08:46→21:04)
[2020-06-22] MEDS ORDERED: TERAZOSIN 5 MG CAP ONE (11:00)
[2020-06-22] MEDS ORDERED: cefTRIAXone SOD 1GM VIAL (J0696 PER 250MG) As Ordered ONE (21:04)
[2020-06-22] MEDS ORDERED: AZITHROMYCIN INJ 500MG VIAL (J0456 PER 500MG) As Ordered ONE (22:48)
[2020-06-23] MEDS ORDERED: HEPARIN SOD (PORCINE) 5000UNITS/ML 1ML VIAL/SYRINGE As Ordered ONE ×3 (04:56→22:14)
[2020-06-23] MEDS ORDERED: NORCO, ANEXSIA 5/325MG TABLET (HYDROcodone/ACETAMINOPHEN) As Ordered ONE ×3 (04:56→18:39)
[2020-06-23] MEDS ORDERED: DOCUSATE SODIUM 100 MG CAP As Ordered ONE ×2 (09:32→20:15)
[2020-06-23] MEDS ORDERED: OMEPRAZOLE 20 MG CAP As Ordered ONE (09:32)
[2020-06-23] MEDS ORDERED: LACTULOSE 20 GM/30 ML SYRUP UD As Ordered ONE ×2 (11:29→18:39)
[2020-06-23] MEDS ORDERED: MIRALAX *UNIT DOSE* 17GM PACKET As Ordered ONE (21:40)
[2020-06-23] MEDS ORDERED: cefTRIAXone SOD 1GM VIAL (J0696 PER 250MG) As Ordered ONE (21:47)
[2020-06-23] MEDS ORDERED: AZITHROMYCIN INJ 500MG VIAL (J0456 PER 500MG) As Ordered ONE (22:14)
[2020-06-24] MEDS ORDERED: NORCO, ANEXSIA 5/325MG TABLET (HYDROcodone/ACETAMINOPHEN) As Ordered ONE ×4 (01:23→18:34)
[2020-06-24] MEDS ORDERED: HEPARIN SOD (PORCINE) 5000UNITS/ML 1ML VIAL/SYRINGE As Ordered ONE ×3 (05:49→20:59)
[2020-06-24] MEDS ORDERED: OMEPRAZOLE 20 MG CAP As Ordered ONE (08:17)
[2020-06-24] MEDS ORDERED: LACTULOSE 20 GM/30 ML SYRUP UD As Ordered ONE (08:17)
[2020-06-24] MEDS ORDERED: DOCUSATE SODIUM 100 MG CAP As Ordered ONE ×2 (08:18→20:59)
[2020-06-24] MEDS ORDERED: MIRALAX *UNIT DOSE* 17GM PACKET As Ordered ONE (14:23)
[2020-06-24] MEDS ORDERED: cefTRIAXone SOD 1GM VIAL (J0696 PER 250MG) As Ordered ONE (20:59)
[2020-06-24] MEDS ORDERED: AZITHROMYCIN INJ 500MG VIAL (J0456 PER 500MG) As Ordered ONE (22:58)
[2020-06-25] MEDS ORDERED: NORCO, ANEXSIA 5/325MG TABLET (HYDROcodone/ACETAMINOPHEN) As Ordered ONE ×3 (02:23→21:27)
[2020-06-25] MEDS ORDERED: LACTULOSE 20 GM/30 ML SYRUP UD As Ordered ONE ×4 (03:29→23:53)
[2020-06-25] MEDS ORDERED: HEPARIN SOD (PORCINE) 5000UNITS/ML 1ML VIAL/SYRINGE As Ordered ONE ×3 (05:15→21:27)
[2020-06-25] MEDS ORDERED: SENNA 8.6 MG TAB (SENOKOT) As Ordered ONE ×2 (09:20→21:27)
[2020-06-25] MEDS ORDERED: OMEPRAZOLE 20 MG CAP As Ordered ONE (09:20)
[2020-06-25] MEDS ORDERED: DOCUSATE SODIUM 100 MG CAP As Ordered ONE ×2 (09:20→21:27)
[2020-06-25] MEDS ORDERED: TERAZOSIN 5 MG CAP ONE (12:08)
[2020-06-25] MEDS ORDERED: LACTULOSE 20 GM/30 ML SYRUP UD ONE ×2 (14:18→18:40)
[2020-06-25] MEDS ORDERED: DICYCLOMINE INJ 20MG/2ML (J0500) ONE (20:00)
[2020-06-25] MEDS ORDERED: cefTRIAXone SOD 1GM VIAL (J0696 PER 250MG) As Ordered ONE (21:28)
[2020-06-25] MEDS ORDERED: AZITHROMYCIN INJ 500MG VIAL (J0456 PER 500MG) As Ordered ONE (22:43)
[2020-06-26] MEDS ORDERED: LACTULOSE 20 GM/30 ML SYRUP UD As Ordered ONE ×3 (05:48→17:34)
[2020-06-26] MEDS ORDERED: HEPARIN SOD (PORCINE) 5000UNITS/ML 1ML VIAL/SYRINGE As Ordered ONE ×3 (05:52→22:35)
[2020-06-26] MEDS ORDERED: OMEPRAZOLE 20 MG CAP As Ordered ONE (09:21)
[2020-06-26] MEDS ORDERED: SENNA 8.6 MG TAB (SENOKOT) As Ordered ONE ×2 (09:22→20:23)
[2020-06-26] MEDS ORDERED: LIDOCAINE 5% (LIDODERM) PATCH As Ordered ONE (09:22)
[2020-06-26] MEDS ORDERED: DOCUSATE SODIUM 100 MG CAP As Ordered ONE ×2 (09:22→20:23)
[2020-06-26] MEDS ORDERED: cefTRIAXone SOD 1GM VIAL (J0696 PER 250MG) As Ordered ONE (22:35)
[2020-06-26] MEDS ORDERED: NORCO, ANEXSIA 5/325MG TABLET (HYDROcodone/ACETAMINOPHEN) As Ordered ONE (22:35)
[2020-06-26] MEDS ORDERED: AZITHROMYCIN INJ 500MG VIAL (J0456 PER 500MG) As Ordered ONE (23:20)
[2020-06-27] MEDS ORDERED: HEPARIN SOD (PORCINE) 5000UNITS/ML 1ML VIAL/SYRINGE As Ordered ONE ×3 (05:09→21:13)
[2020-06-27] MEDS ORDERED: NORCO, ANEXSIA 5/325MG TABLET (HYDROcodone/ACETAMINOPHEN) As Ordered ONE ×3 (09:16→21:13)
[2020-06-27] MEDS ORDERED: DOCUSATE SODIUM 100 MG CAP As Ordered ONE ×2 (09:17→21:13)
[2020-06-27] MEDS ORDERED: OMEPRAZOLE 20 MG CAP As Ordered ONE (09:17)
[2020-06-27] MEDS ORDERED: SENNA 8.6 MG TAB (SENOKOT) As Ordered ONE ×2 (09:18→21:13)
[2020-06-27] MEDS ORDERED: TERAZOSIN 5 MG CAP ONE (11:00)
[2020-06-28] MEDS ORDERED: HEPARIN SOD (PORCINE) 5000UNITS/ML 1ML VIAL/SYRINGE As Ordered ONE ×3 (05:20→20:56)
[2020-06-28] MEDS ORDERED: LACTULOSE 20 GM/30 ML SYRUP UD As Ordered ONE (08:54)
[2020-06-28] MEDS ORDERED: MIRALAX *UNIT DOSE* 17GM PACKET As Ordered ONE (08:54)
[2020-06-28] MEDS ORDERED: NORCO, ANEXSIA 5/325MG TABLET (HYDROcodone/ACETAMINOPHEN) As Ordered ONE ×2 (08:54→20:58)
[2020-06-28] MEDS ORDERED: MIRALAX *UNIT DOSE* 17GM PACKET ONE (08:54)
[2020-06-28] MEDS ORDERED: DOCUSATE SODIUM 100 MG CAP As Ordered ONE ×2 (08:55→20:56)
[2020-06-28] MEDS ORDERED: OMEPRAZOLE 20 MG CAP As Ordered ONE (08:55)
[2020-06-28] MEDS ORDERED: SENNA 8.6 MG TAB (SENOKOT) As Ordered ONE ×2 (08:55→20:56)
[2020-06-28] MEDS ORDERED: IPRATROPIUM 0.5MG/ALBUTEROL 2.5MG INH SOL UD 3ML (DUONEB) ONE (10:00)
[2020-06-28] MEDS ORDERED: ONDANSETRON 4MG/2ML VIAL As Ordered ONE (13:06)
[2020-06-29] MEDS ORDERED: NORCO, ANEXSIA 5/325MG TABLET (HYDROcodone/ACETAMINOPHEN) As Ordered ONE ×4 (01:06→20:13)
[2020-06-29] MEDS ORDERED: MIRALAX *UNIT DOSE* 17GM PACKET As Ordered ONE (02:46)
[2020-06-29] MEDS ORDERED: MIRALAX *UNIT DOSE* 17GM PACKET ONE (02:46)
[2020-06-29] MEDS ORDERED: KETOROLAC 30 MG/ML 1ML VIAL As Ordered ONE (02:46)
[2020-06-29] MEDS ORDERED: MAGNESIUM OXIDE 400 MG TAB (MAG-OX) As Ordered ONE (02:46)
[2020-06-29] MEDS ORDERED: HEPARIN SOD (PORCINE) 5000UNITS/ML 1ML VIAL/SYRINGE As Ordered ONE ×3 (05:24→20:09)
[2020-06-29] MEDS ORDERED: OMEPRAZOLE 20 MG CAP As Ordered ONE (09:28)
[2020-06-29] MEDS ORDERED: DOCUSATE SODIUM 100 MG CAP As Ordered ONE ×2 (09:28→20:09)
[2020-06-29] MEDS ORDERED: LACTULOSE 20 GM/30 ML SYRUP UD As Ordered ONE (09:28)
[2020-06-29] MEDS ORDERED: SENNA 8.6 MG TAB (SENOKOT) As Ordered ONE ×2 (09:29→20:09)
[2020-06-29] MEDS ORDERED: LIDOCAINE 5% (LIDODERM) PATCH As Ordered ONE (09:29)
[2020-06-29] MEDS ORDERED: IPRATROPIUM 0.5MG/ALBUTEROL 2.5MG INH SOL UD 3ML (DUONEB) ONE (10:00)
[2020-06-29] MEDS ORDERED: TERAZOSIN 5 MG CAP ONE (13:00)
[2020-06-30] MEDS ORDERED: NORCO, ANEXSIA 5/325MG TABLET (HYDROcodone/ACETAMINOPHEN) As Ordered ONE ×3 (00:25→19:57)
[2020-06-30] MEDS ORDERED: HEPARIN SOD (PORCINE) 5000UNITS/ML 1ML VIAL/SYRINGE As Ordered ONE ×3 (05:18→19:57)
[2020-06-30] MEDS ORDERED: LACTULOSE 20 GM/30 ML SYRUP UD As Ordered ONE (08:25)
[2020-06-30] MEDS ORDERED: LIDOCAINE 5% (LIDODERM) PATCH As Ordered ONE (08:26)
[2020-06-30] MEDS ORDERED: DOCUSATE SODIUM 100 MG CAP As Ordered ONE ×2 (08:26→19:58)
[2020-06-30] MEDS ORDERED: OMEPRAZOLE 20 MG CAP As Ordered ONE (08:26)
[2020-06-30] MEDS ORDERED: SENNA 8.6 MG TAB (SENOKOT) As Ordered ONE ×2 (08:26→19:57)
[2020-06-30] MEDS ORDERED: IPRATROPIUM 0.5MG/ALBUTEROL 2.5MG INH SOL UD 3ML (DUONEB) ONE (10:00)
[2020-06-30] MEDS ORDERED: PERCOCET 5MG/325MG TAB As Ordered ONE (10:39)
[2020-07-01] MEDS ORDERED: NORCO, ANEXSIA 5/325MG TABLET (HYDROcodone/ACETAMINOPHEN) As Ordered ONE ×2 (02:51→21:21)
[2020-07-01] MEDS ORDERED: HEPARIN SOD (PORCINE) 5000UNITS/ML 1ML VIAL/SYRINGE As Ordered ONE ×3 (05:28→21:07)
[2020-07-01] MEDS ORDERED: LACTULOSE 20 GM/30 ML SYRUP UD As Ordered ONE (08:37)
[2020-07-01] MEDS ORDERED: SENNA 8.6 MG TAB (SENOKOT) As Ordered ONE ×2 (08:37→21:07)
[2020-07-01] MEDS ORDERED: DOCUSATE SODIUM 100 MG CAP As Ordered ONE ×2 (08:37→21:07)
[2020-07-01] MEDS ORDERED: OMEPRAZOLE 20 MG CAP As Ordered ONE (08:37)
[2020-07-01] MEDS ORDERED: IPRATROPIUM 0.5MG/ALBUTEROL 2.5MG INH SOL UD 3ML (DUONEB) ONE (10:00)
[2020-07-01] MEDS ORDERED: PERCOCET 5MG/325MG TAB As Ordered ONE (15:38)
[2020-07-02] MEDS ORDERED: ACETAMINOPHEN TAB 650MG DOSE (2X325MG) As Ordered ONE (00:30)
[2020-07-02] MEDS ORDERED: HEPARIN SOD (PORCINE) 5000UNITS/ML 1ML VIAL/SYRINGE As Ordered ONE ×2 (05:41→22:27)
[2020-07-02] MEDS ORDERED: LORazepam 1 MG TAB As Ordered ONE (07:43)
[2020-07-02] MEDS ORDERED: IPRATROPIUM 0.5MG/ALBUTEROL 2.5MG INH SOL UD 3ML (DUONEB) ONE (10:00)
[2020-07-02] MEDS ORDERED: LACTULOSE 20 GM/30 ML SYRUP UD As Ordered ONE (10:09)
[2020-07-02] MEDS ORDERED: MIRALAX *UNIT DOSE* 17GM PACKET As Ordered ONE (10:09)
[2020-07-02] MEDS ORDERED: DOCUSATE SODIUM 100 MG CAP As Ordered ONE ×2 (10:10→22:26)
[2020-07-02] MEDS ORDERED: SENNA 8.6 MG TAB (SENOKOT) As Ordered ONE ×2 (10:10→22:27)
[2020-07-02] MEDS ORDERED: OMEPRAZOLE 20 MG CAP As Ordered ONE (10:10)
[2020-07-02] MEDS ORDERED: NORCO, ANEXSIA 5/325MG TABLET (HYDROcodone/ACETAMINOPHEN) As Ordered ONE (16:37)
[2020-07-02] MEDS ORDERED: LORazepam 0.5 MG TAB As Ordered ONE (22:26)
[2020-07-02] MEDS ORDERED: MORPHINE 10MG/0.5ML ORAL CONCENTRATE SOLUTION U/D As Ordered ONE (22:27)
[2020-07-03] MEDS ORDERED: MORPHINE 10MG/0.5ML ORAL CONCENTRATE SOLUTION U/D As Ordered ONE ×5 (02:36→21:07)
[2020-07-03] MEDS ORDERED: LACTULOSE 20 GM/30 ML SYRUP UD As Ordered ONE (09:29)
[2020-07-03] MEDS ORDERED: OMEPRAZOLE 20 MG CAP As Ordered ONE (09:30)
[2020-07-03] MEDS ORDERED: SENNA 8.6 MG TAB (SENOKOT) As Ordered ONE ×2 (09:31→21:07)
[2020-07-03] MEDS ORDERED: DOCUSATE SOD LIQ 100MG/10ML UDC As Ordered ONE (09:31)
[2020-07-03] MEDS ORDERED: DOCUSATE SODIUM 100 MG CAP As Ordered ONE ×2 (09:32→21:06)
[2020-07-03] MEDS ORDERED: IPRATROPIUM 0.5MG/ALBUTEROL 2.5MG INH SOL UD 3ML (DUONEB) ONE (10:00)
[2020-07-03] MEDS ORDERED: LORazepam 0.5 MG TAB As Ordered ONE (13:53)
[2020-07-03] MEDS ORDERED: SCOPOLAMINE 1MG TRANSDERMAL PATCH As Ordered ONE (21:06)
[2020-07-04] MEDS ORDERED: MORPHINE 10MG/0.5ML ORAL CONCENTRATE SOLUTION U/D As Ordered ONE ×3 (02:49→23:58)
[2020-07-04] MEDS ORDERED: OMEPRAZOLE 20 MG CAP As Ordered ONE (09:49)
[2020-07-04] MEDS ORDERED: LACTULOSE 20 GM/30 ML SYRUP UD As Ordered ONE (09:49)
[2020-07-04] MEDS ORDERED: DOCUSATE SODIUM 100 MG CAP As Ordered ONE ×2 (09:50→23:57)
[2020-07-04] MEDS ORDERED: SENNA 8.6 MG TAB (SENOKOT) As Ordered ONE ×2 (09:50→23:58)
[2020-07-04] MEDS ORDERED: IPRATROPIUM 0.5MG/ALBUTEROL 2.5MG INH SOL UD 3ML (DUONEB) ONE (10:00)
[2020-07-04] MEDS ORDERED: NORCO, ANEXSIA 5/325MG TABLET (HYDROcodone/ACETAMINOPHEN) As Ordered ONE (12:45)
[2020-07-04] MEDS ORDERED: TERAZOSIN 5 MG CAP ONE (13:00)
[2020-07-04] MEDS ORDERED: LORazepam 0.5 MG TAB As Ordered ONE (23:57)
[2020-07-05] MEDS ORDERED: ONDANSETRON 4 MG TAB As Ordered ONE ×2 (00:13→20:08)
[2020-07-05] MEDS ORDERED: DOCUSATE SODIUM 100 MG CAP As Ordered ONE ×2 (08:25→20:07)
[2020-07-05] MEDS ORDERED: OMEPRAZOLE 20 MG CAP As Ordered ONE (08:25)
[2020-07-05] MEDS ORDERED: LACTULOSE 20 GM/30 ML SYRUP UD As Ordered ONE (08:25)
[2020-07-05] MEDS ORDERED: MORPHINE 10MG/0.5ML ORAL CONCENTRATE SOLUTION U/D As Ordered ONE ×3 (08:26→20:08)
[2020-07-05] MEDS ORDERED: SENNA 8.6 MG TAB (SENOKOT) As Ordered ONE ×2 (08:26→20:08)
[2020-07-05] MEDS ORDERED: IPRATROPIUM 0.5MG/ALBUTEROL 2.5MG INH SOL UD 3ML (DUONEB) ONE (10:00)
[2020-07-05] MEDS ORDERED: LORazepam 0.5 MG TAB As Ordered ONE (20:07)
[2020-07-06] MEDS ORDERED: MORPHINE 10MG/0.5ML ORAL CONCENTRATE SOLUTION U/D As Ordered ONE ×4 (02:53→19:52)
[2020-07-06] MEDS ORDERED: ONDANSETRON 4 MG TAB As Ordered ONE (02:54)
[2020-07-06] MEDS ORDERED: OMEPRAZOLE 20 MG CAP As Ordered ONE (07:36)
[2020-07-06] MEDS ORDERED: LACTULOSE 20 GM/30 ML SYRUP UD As Ordered ONE (07:36)
[2020-07-06] MEDS ORDERED: SENNA 8.6 MG TAB (SENOKOT) As Ordered ONE ×2 (07:37→19:52)
[2020-07-06] MEDS ORDERED: DOCUSATE SODIUM 100 MG CAP As Ordered ONE ×2 (07:37→19:52)
[2020-07-06] MEDS ORDERED: TERAZOSIN 5 MG CAP ONE (09:00)
[2020-07-07] MEDS ORDERED: MORPHINE 10MG/0.5ML ORAL CONCENTRATE SOLUTION U/D As Ordered ONE ×4 (01:28→20:45)
[2020-07-07] MEDS ORDERED: IPRATROPIUM 0.5MG/ALBUTEROL 2.5MG INH SOL UD 3ML (DUONEB) ONE (10:00)
[2020-07-07] MEDS ORDERED: LACTULOSE 20 GM/30 ML SYRUP UD As Ordered ONE (10:19)
[2020-07-07] MEDS ORDERED: DOCUSATE SODIUM 100 MG CAP As Ordered ONE ×2 (10:20→20:39)
[2020-07-07] MEDS ORDERED: OMEPRAZOLE 20 MG CAP As Ordered ONE (10:20)
[2020-07-07] MEDS ORDERED: SENNA 8.6 MG TAB (SENOKOT) As Ordered ONE ×2 (10:21→20:40)
[2020-07-07] MEDS ORDERED: LORazepam 0.5 MG TAB As Ordered ONE (15:26)
[2020-07-08] MEDS ORDERED: MORPHINE 10MG/0.5ML ORAL CONCENTRATE SOLUTION U/D As Ordered ONE ×5 (02:10→20:01)
[2020-07-08] MEDS ORDERED: LACTULOSE 20 GM/30 ML SYRUP UD As Ordered ONE (09:50)
[2020-07-08] MEDS ORDERED: OMEPRAZOLE 20 MG CAP As Ordered ONE (09:50)
[2020-07-08] MEDS ORDERED: DOCUSATE SODIUM 100 MG CAP As Ordered ONE ×2 (09:51→20:00)
[2020-07-08] MEDS ORDERED: SENNA 8.6 MG TAB (SENOKOT) As Ordered ONE ×2 (09:51→20:01)
[2020-07-08] MEDS ORDERED: IPRATROPIUM 0.5MG/ALBUTEROL 2.5MG INH SOL UD 3ML (DUONEB) ONE (10:00)
[2020-07-09] MEDS ORDERED: MORPHINE 10MG/0.5ML ORAL CONCENTRATE SOLUTION U/D As Ordered ONE ×2 (03:44→05:40)
[2020-07-09] MEDS ORDERED: MORPHINE SULFATE ORAL SOLN 10 MG/5 ML UD As Ordered ONE (09:22)
[2020-07-09] MEDS ORDERED: LACTULOSE 20 GM/30 ML SYRUP UD As Ordered ONE (09:39)
[2020-07-09] MEDS ORDERED: OMEPRAZOLE 20 MG CAP As Ordered ONE (09:40)
[2020-07-09] MEDS ORDERED: DOCUSATE SODIUM 100 MG CAP As Ordered ONE ×2 (09:40→20:09)
[2020-07-09] MEDS ORDERED: SENNA 8.6 MG TAB (SENOKOT) As Ordered ONE ×2 (09:40→20:14)
[2020-07-09] MEDS ORDERED: IPRATROPIUM 0.5MG/ALBUTEROL 2.5MG INH SOL UD 3ML (DUONEB) ONE (10:00)
[2020-07-09] MEDS ORDERED: TERAZOSIN 5 MG CAP ONE (13:00)
[2020-07-09] MEDS ORDERED: SENOKOT S TAB As Ordered ONE (20:09)
[2020-07-09] MEDS ORDERED: DOCUSATE SODIUM 100 MG CAP ONE (20:09)
[2020-07-10] MEDS ORDERED: FLEET ENEMA PR PRN (13:30)
[2020-07-10] MEDS ORDERED: DICYCLOMINE 10 MG CAP PO PRN (13:30)
[2020-07-10] MEDS ORDERED: SCOPOLAMINE 1MG TRANSDERMAL PATCH TOP PRN (13:30)
[2020-07-10] MEDS ORDERED: ACETAMINOPHEN TAB 650MG DOSE (2X325MG) PO PRN (13:30)
[2020-07-10] MEDS ORDERED: LACTULOSE 20 GM/30 ML SYRUP UD PO PRN (13:30)
[2020-07-10] MEDS: IPRATROPIUM 0.5MG/ALBUTEROL 2.5MG INH SOL UD 3ML (DUONEB) INH SCH (19:37)
[2020-07-10] MEDS: DOCUSATE SODIUM 100 MG CAP PO SCH (20:05)
[2020-07-10] MEDS: SENNA 8.6 MG TAB (SENOKOT) PO SCH (20:06)
[2020-07-10] MEDS: TERAZOSIN 5 MG CAP PO SCH (20:06)
[2020-07-10] MEDS: MORPHINE 10MG/0.5ML ORAL CONCENTRATE SOLUTION U/D PO PRN (20:07)
[2020-07-11] MEDS: IPRATROPIUM 0.5MG/ALBUTEROL 2.5MG INH SOL UD 3ML (DUONEB) INH SCH ×4 (02:06→20:00)
[2020-07-11] MEDS: MORPHINE 10MG/0.5ML ORAL CONCENTRATE SOLUTION U/D PO PRN ×3 (04:35→21:35)
[2020-07-11] MEDS: OMEPRAZOLE 20 MG CAP PO SCH (10:49)
[2020-07-11] MEDS: LACTULOSE 20 GM/30 ML SYRUP UD PO SCH (10:49)
[2020-07-11] MEDS: SENNA 8.6 MG TAB (SENOKOT) PO SCH ×2 (10:49→21:35)
[2020-07-11] MEDS: DOCUSATE SODIUM 100 MG CAP PO SCH ×2 (10:49→21:35)
[2020-07-11] MEDS: LORazepam 0.5 MG TAB PO PRN ×2 (12:29→21:38)
[2020-07-11] MEDS: ONDANSETRON 4 MG TAB PO PRN (12:29)
[2020-07-11] MEDS: TERAZOSIN 5 MG CAP PO SCH (21:34)
[2020-07-12] MEDS: IPRATROPIUM 0.5MG/ALBUTEROL 2.5MG INH SOL UD 3ML (DUONEB) INH SCH ×4 (02:00→20:18)
[2020-07-12] MEDS: LORazepam 0.5 MG TAB PO PRN ×2 (04:41→17:45)
[2020-07-12] MEDS: MORPHINE 10MG/0.5ML ORAL CONCENTRATE SOLUTION U/D PO PRN ×6 (04:41→20:03)
[2020-07-12] MEDS: SENNA 8.6 MG TAB (SENOKOT) PO SCH ×2 (08:20→20:02)
[2020-07-12] MEDS: LACTULOSE 20 GM/30 ML SYRUP UD PO SCH (08:20)
[2020-07-12] MEDS: DOCUSATE SODIUM 100 MG CAP PO SCH ×2 (08:20→20:02)
[2020-07-12] MEDS: OMEPRAZOLE 20 MG CAP PO SCH (08:20)
[2020-07-12] MEDS: ONDANSETRON 4 MG TAB PO PRN (15:41)
[2020-07-12] MEDS: TERAZOSIN 5 MG CAP PO SCH (20:02)
[2020-07-12] MEDS: NORCO, ANEXSIA 5/325MG TABLET (HYDROcodone/ACETAMINOPHEN) PO PRN (20:03)
[2020-07-13] MEDS: LORazepam 0.5 MG TAB PO PRN ×5 (00:35→22:00)
[2020-07-13] MEDS: NORCO, ANEXSIA 5/325MG TABLET (HYDROcodone/ACETAMINOPHEN) PO PRN ×2 (00:36→05:00)
[2020-07-13] MEDS: IPRATROPIUM 0.5MG/ALBUTEROL 2.5MG INH SOL UD 3ML (DUONEB) INH SCH ×4 (01:30→19:56)
[2020-07-13] MEDS: MORPHINE 10MG/0.5ML ORAL CONCENTRATE SOLUTION U/D PO PRN ×5 (05:00→21:59)
[2020-07-13] MEDS: MIRALAX *UNIT DOSE* 17GM PACKET PO PRN (08:18)
[2020-07-13] MEDS: SENNA 8.6 MG TAB (SENOKOT) PO SCH ×2 (08:20→22:00)
[2020-07-13] MEDS: OMEPRAZOLE 20 MG CAP PO SCH (08:20)
[2020-07-13] MEDS: LACTULOSE 20 GM/30 ML SYRUP UD PO SCH (08:20)
[2020-07-13] MEDS: DOCUSATE SODIUM 100 MG CAP PO SCH ×2 (08:20→22:00)
[2020-07-13 11:57] LABS: INR 1.12; PARTIAL THROMBOPLASTIN TIME 29.1 SECONDS (25.0-38.4); PROTHROMBIN TIME 14.7 SECONDS (11.8-14.0)
[2020-07-13 15:45] LABS: BASO % 0.2 % (0.0-1.0); EOS % 0.1 % (0.0-3.0); HEMATOCRIT 39.4 % (42.0-52.0); HEMOGLOBIN 13.1 g/dl (13.5-17.5); LYMPH # 1.2 10^3/uL (1.5-5.0); LYMPH % 8.1 % (24.0-44.0); MEAN CORPUSCULAR HEMOGLOBIN 31.7 pg (27.0-33.0); MEAN CORPUSCULAR HGB CONC 33.2 g/dl (32.0-36.5); MEAN CORPUSCULAR VOLUME 95.4 fl (80.0-96.0); MONO % 6.8 % (0.0-5.0); NEUTROPHILS # 12.5 10^3/uL (1.5-8.5); NEUTROPHILS % 84.2 % (36.0-66.0); PLATELET COUNT, AUTOMATED 349 10^3/uL (150-450); RED BLOOD COUNT 4.13 10^6/uL (4.30-6.10); WHITE BLOOD COUNT 14.9 10^3/uL (4.0-10.0)
[2020-07-13] MEDS: TERAZOSIN 5 MG CAP PO SCH (22:00)
[2020-07-14] MEDS: IPRATROPIUM 0.5MG/ALBUTEROL 2.5MG INH SOL UD 3ML (DUONEB) INH SCH ×4 (01:33→19:54)
[2020-07-14] MEDS: MORPHINE 10MG/0.5ML ORAL CONCENTRATE SOLUTION U/D PO PRN ×3 (05:30→21:36)
[2020-07-14] MEDS: LORazepam 0.5 MG TAB PO PRN ×2 (05:31→21:36)
[2020-07-14] MEDS: ONDANSETRON 4 MG TAB PO PRN (08:52)
[2020-07-14] MEDS: SENNA 8.6 MG TAB (SENOKOT) PO SCH ×2 (09:00→21:00)
[2020-07-14] MEDS: DOCUSATE SODIUM 100 MG CAP PO SCH ×2 (09:00→21:00)
[2020-07-14] MEDS: LACTULOSE 20 GM/30 ML SYRUP UD PO SCH (09:00)
[2020-07-14] MEDS: OMEPRAZOLE 20 MG CAP PO SCH (09:00)
[2020-07-14] MEDS: TERAZOSIN 5 MG CAP PO SCH (21:00)
[2020-07-15] MEDS: IPRATROPIUM 0.5MG/ALBUTEROL 2.5MG INH SOL UD 3ML (DUONEB) INH SCH ×4 (00:44→19:28)
[2020-07-15] MEDS: MORPHINE 10MG/0.5ML ORAL CONCENTRATE SOLUTION U/D PO PRN ×5 (05:47→20:57)
[2020-07-15] MEDS: MIRALAX *UNIT DOSE* 17GM PACKET PO PRN (08:20)
[2020-07-15] MEDS: OMEPRAZOLE 20 MG CAP PO SCH (08:21)
[2020-07-15] MEDS: SENNA 8.6 MG TAB (SENOKOT) PO SCH ×2 (08:21→20:25)
[2020-07-15] MEDS: DOCUSATE SODIUM 100 MG CAP PO SCH ×2 (08:21→20:25)
[2020-07-15] MEDS: ONDANSETRON 4 MG TAB PO PRN (08:21)
[2020-07-15] MEDS: LACTULOSE 20 GM/30 ML SYRUP UD PO SCH (08:27)
--- NOTE | 2020-07-15 18:28 | IPNPDOC ---
Date Seen The patient was seen on 07/15/20. Progress Note SUBJECTIVE: no acute events overnight. Reports shortness of breath. Weakness. Deconditioned. Wishes to go to hospice. OBJECTIVE PHYSICAL EXAMINATION: VITAL SIGNS: Please see below. GENERAL: no signs of acute distress HEENT: PERRLA CARDIOVASCULAR: RRR, normal S1, S2. RESPIRATORY: CTAB. ABDOMINAL: soft, non tender EXTREMITIES: moves all 4 NEUROLOGICAL: no focal deficits PSYCHOLOGICAL: calm, cooperative LABORATORY DATA, IMAGING STUDIES, MICROBIOLOGY: Please see below. Echocardiogram: N DVT prophylaxis ordered? N ASSESSMENT AND PLAN: Mr. 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 He was admitted for abdominal pain, likely due to fecal impaction. Given significant deconditioning and poor prognosis, he is now comfort care status, awaiting placement into hospice. PROBLEMS: 1. Small cell lung ca: comfort measures. Pending placement into hospice. 2. Constipation: bowel regimen 3. Dyspnea: morphine sulfate prn, duonebs 4. nausea: zofran 4 mg q6h prn, scopolamine topical, bentyl 5. anxiety: lorazepam 0.5 mg DISPOSITION: comfort measures, hospice pending financial approval. VS, I&O, 24H, Fishbone Vital Signs/I&O Vital Signs Date Time Temp Pulse Resp B/P (MAP) Pulse Ox O2 Delivery O2 Flow Rate FiO2 07/13/20 17:50 20 07/12/20 17:46 Room Air I&O- Last 24 Hours up to 6 AM 07/15/20 06:00 Intake Total 620 ml Output Total 615 ml Balance 5 ml ROLAN KITCHEN MD Jul 15, 2020 18:28
[2020-07-15] MEDS: TERAZOSIN 5 MG CAP PO SCH (20:26)
[2020-07-16] MEDS: MORPHINE 10MG/0.5ML ORAL CONCENTRATE SOLUTION U/D PO PRN ×4 (01:07→14:03)
[2020-07-16] MEDS: IPRATROPIUM 0.5MG/ALBUTEROL 2.5MG INH SOL UD 3ML (DUONEB) INH SCH ×4 (02:35→19:15)
[2020-07-16] MEDS: NORCO, ANEXSIA 5/325MG TABLET (HYDROcodone/ACETAMINOPHEN) PO PRN ×2 (05:29→16:48)
[2020-07-16] MEDS: LORazepam 0.5 MG TAB PO PRN ×3 (05:29→21:13)
[2020-07-16] MEDS: LACTULOSE 20 GM/30 ML SYRUP UD PO SCH (09:01)
[2020-07-16] MEDS: DOCUSATE SODIUM 100 MG CAP PO SCH ×2 (09:02→20:26)
[2020-07-16] MEDS: SENNA 8.6 MG TAB (SENOKOT) PO SCH ×2 (09:02→20:26)
[2020-07-16] MEDS: OMEPRAZOLE 20 MG CAP PO SCH (09:02)
[2020-07-16] MEDS: TERAZOSIN 5 MG CAP PO SCH (20:26)
[2020-07-17] MEDS: IPRATROPIUM 0.5MG/ALBUTEROL 2.5MG INH SOL UD 3ML (DUONEB) INH SCH ×4 (01:12→19:45)
[2020-07-17] MEDS: MORPHINE 10MG/0.5ML ORAL CONCENTRATE SOLUTION U/D PO PRN ×4 (03:57→20:15)
[2020-07-17] MEDS: NORCO, ANEXSIA 5/325MG TABLET (HYDROcodone/ACETAMINOPHEN) PO PRN ×2 (04:57→12:56)
[2020-07-17] MEDS: MIRALAX *UNIT DOSE* 17GM PACKET PO PRN (09:46)
[2020-07-17] MEDS: LACTULOSE 20 GM/30 ML SYRUP UD PO SCH (09:46)
[2020-07-17] MEDS: OMEPRAZOLE 20 MG CAP PO SCH (09:47)
[2020-07-17] MEDS: ONDANSETRON 4 MG TAB PO PRN (09:47)
[2020-07-17] MEDS: LORazepam 0.5 MG TAB PO PRN ×2 (09:47→20:23)
[2020-07-17] MEDS: SENNA 8.6 MG TAB (SENOKOT) PO SCH ×2 (09:47→20:14)
[2020-07-17] MEDS: DOCUSATE SODIUM 100 MG CAP PO SCH ×2 (09:47→20:14)
[2020-07-17] MEDS: TERAZOSIN 5 MG CAP PO SCH (20:16)
[2020-07-18] MEDS: IPRATROPIUM 0.5MG/ALBUTEROL 2.5MG INH SOL UD 3ML (DUONEB) INH SCH ×4 (02:00→19:26)
[2020-07-18] MEDS: MORPHINE 10MG/0.5ML ORAL CONCENTRATE SOLUTION U/D PO PRN ×4 (04:11→22:20)
[2020-07-18] MEDS: NORCO, ANEXSIA 5/325MG TABLET (HYDROcodone/ACETAMINOPHEN) PO PRN (05:58)
[2020-07-18] MEDS: LACTULOSE 20 GM/30 ML SYRUP UD PO SCH (10:40)
[2020-07-18] MEDS: LORazepam 0.5 MG TAB PO PRN ×2 (10:41→19:52)
[2020-07-18] MEDS: OMEPRAZOLE 20 MG CAP PO SCH (10:41)
[2020-07-18] MEDS: SENNA 8.6 MG TAB (SENOKOT) PO SCH ×2 (10:41→19:52)
[2020-07-18] MEDS: DOCUSATE SODIUM 100 MG CAP PO SCH ×2 (10:41→19:51)
[2020-07-18] MEDS: TERAZOSIN 5 MG CAP PO SCH (19:54)
[2020-07-19] MEDS: MORPHINE 10MG/0.5ML ORAL CONCENTRATE SOLUTION U/D PO PRN ×4 (01:31→22:54)
[2020-07-19] MEDS: LORazepam 0.5 MG TAB PO PRN ×3 (01:31→22:54)
[2020-07-19] MEDS: IPRATROPIUM 0.5MG/ALBUTEROL 2.5MG INH SOL UD 3ML (DUONEB) INH SCH ×4 (02:00→20:05)
[2020-07-19] MEDS: NORCO, ANEXSIA 5/325MG TABLET (HYDROcodone/ACETAMINOPHEN) PO PRN (04:16)
[2020-07-19] MEDS: DOCUSATE SODIUM 100 MG CAP PO SCH ×2 (08:55→20:31)
[2020-07-19] MEDS: SENNA 8.6 MG TAB (SENOKOT) PO SCH ×2 (08:55→20:31)
[2020-07-19] MEDS: LACTULOSE 20 GM/30 ML SYRUP UD PO SCH (08:55)
[2020-07-19] MEDS: OMEPRAZOLE 20 MG CAP PO SCH (08:55)
[2020-07-19] MEDS: IPRATROPIUM 0.5MG/ALBUTEROL 2.5MG INH SOL UD 3ML (DUONEB) INH PRN (10:31)
[2020-07-19] MEDS: ONDANSETRON 4 MG TAB PO PRN (14:24)
[2020-07-19] MEDS: TERAZOSIN 5 MG CAP PO SCH (20:31)
[2020-07-20] MEDS: MORPHINE 10MG/0.5ML ORAL CONCENTRATE SOLUTION U/D PO PRN ×6 (01:02→21:56)
[2020-07-20] MEDS: IPRATROPIUM 0.5MG/ALBUTEROL 2.5MG INH SOL UD 3ML (DUONEB) INH SCH ×4 (01:27→19:44)
[2020-07-20] MEDS: LORazepam 0.5 MG TAB PO PRN ×3 (06:25→21:10)
[2020-07-20 07:21] LABS: BLOOD UREA NITROGEN 34 MG/DL (7-18); CALCIUM LEVEL 8.3 MG/DL (8.8-10.2); CARBON DIOXIDE LEVEL 23 MEQ/L (21-32); CHLORIDE LEVEL 106 MEQ/L (98-107); CHOLESTEROL LEVEL 126 MG/DL (<200); CHOLESTEROL RISK RATIO 2.7 (<5); CK-MB VALUE MASS < 1.0 NG/ML (<3.6); CPK CREATINE PHOSPHOKINASE 40 U/L (39-308); CREATININE FOR GFR 1.16 MG/DL (0.70-1.30); FREE T4 1.32 NG/DL (0.76-1.46); GLOMERULAR FILTRATION RATE > 60.0 (>42); GLUCOSE, FASTING 151 MG/DL (70-100); HDL CHOLESTEROL 46 MG/DL (>40); LDL CHOLESTEROL 63 MG/DL (<100); LIPASE 60 U/L (73-393); NON-HDL-C 80 MG/DL; NT-PRO BNP 582 PG/ML (<125); POTASSIUM SERUM 4.4 MEQ/L (3.5-5.1); SODIUM LEVEL 140 MEQ/L (136-145); TRIGLYCERIDES LEVEL 87 MG/DL (<150); TROPONIN I < 0.02 NG/ML (< 0.10)
[2020-07-20] MEDS: OMEPRAZOLE 20 MG CAP PO SCH (10:05)
[2020-07-20] MEDS: SENNA 8.6 MG TAB (SENOKOT) PO SCH ×2 (10:05→20:18)
[2020-07-20] MEDS: DOCUSATE SODIUM 100 MG CAP PO SCH ×2 (10:05→20:18)
[2020-07-20] MEDS: LACTULOSE 20 GM/30 ML SYRUP UD PO SCH (10:05)
[2020-07-20 20:26] VITALS: BP 90/60
[2020-07-20] MEDS: TERAZOSIN 5 MG CAP PO SCH (20:27)
[2020-07-21] MEDS: IPRATROPIUM 0.5MG/ALBUTEROL 2.5MG INH SOL UD 3ML (DUONEB) INH SCH ×4 (00:44→19:17)
[2020-07-21] MEDS: LORazepam 0.5 MG TAB PO PRN ×4 (02:43→21:10)
[2020-07-21] MEDS: MORPHINE 10MG/0.5ML ORAL CONCENTRATE SOLUTION U/D PO PRN ×5 (02:43→21:13)
[2020-07-21] MEDS: LACTULOSE 20 GM/30 ML SYRUP UD PO SCH (09:37)
[2020-07-21] MEDS: DOCUSATE SODIUM 100 MG CAP PO SCH ×2 (09:37→21:10)
[2020-07-21] MEDS: OMEPRAZOLE 20 MG CAP PO SCH (09:37)
[2020-07-21] MEDS: SENNA 8.6 MG TAB (SENOKOT) PO SCH ×2 (09:37→21:14)
[2020-07-21] MEDS: MIRALAX *UNIT DOSE* 17GM PACKET PO PRN (09:47)
[2020-07-21] MEDS: TERAZOSIN 5 MG CAP PO SCH (21:11)
[2020-07-22] MEDS: IPRATROPIUM 0.5MG/ALBUTEROL 2.5MG INH SOL UD 3ML (DUONEB) INH SCH ×4 (01:17→19:23)
[2020-07-22] MEDS: MORPHINE 10MG/0.5ML ORAL CONCENTRATE SOLUTION U/D PO PRN ×5 (03:36→20:26)
[2020-07-22] MEDS: LORazepam 0.5 MG TAB PO PRN ×4 (03:37→20:25)
[2020-07-22] MEDS: LACTULOSE 20 GM/30 ML SYRUP UD PO SCH (08:07)
[2020-07-22] MEDS: OMEPRAZOLE 20 MG CAP PO SCH (08:08)
[2020-07-22] MEDS: SENNA 8.6 MG TAB (SENOKOT) PO SCH ×2 (08:08→20:25)
[2020-07-22] MEDS: DOCUSATE SODIUM 100 MG CAP PO SCH ×2 (08:09→20:25)
[2020-07-22] MEDS: TERAZOSIN 5 MG CAP PO SCH (20:26)
[2020-07-23] MEDS: IPRATROPIUM 0.5MG/ALBUTEROL 2.5MG INH SOL UD 3ML (DUONEB) INH SCH ×4 (02:04→19:42)
[2020-07-23] MEDS: LORazepam 0.5 MG TAB PO PRN ×3 (02:28→20:36)
[2020-07-23] MEDS: MORPHINE 10MG/0.5ML ORAL CONCENTRATE SOLUTION U/D PO PRN ×4 (02:29→20:37)
[2020-07-23] MEDS: SENNA 8.6 MG TAB (SENOKOT) PO SCH ×2 (09:51→20:36)
[2020-07-23] MEDS: LACTULOSE 20 GM/30 ML SYRUP UD PO SCH (09:51)
[2020-07-23] MEDS: DOCUSATE SODIUM 100 MG CAP PO SCH ×2 (09:51→20:36)
[2020-07-23] MEDS: OMEPRAZOLE 20 MG CAP PO SCH (09:51)
--- NOTE | 2020-07-23 14:37 | IPNPDOC ---
Text Note Date of Service The patient was seen on 07/23/20. NOTE SUBJECTIVE: no acute events overnight. Reports shortness of breath. this weak catheter had lots of sediment and seemed to be blocked so was removed. However then patient started having urinary retention so new quinones was put back in. OBJECTIVE PHYSICAL EXAMINATION: VITAL SIGNS: Please see below. GENERAL: no signs of acute distress CARDIOVASCULAR: S1, S2 present RESPIRATORY: CTAB. ABDOMINAL: soft, non tender EXTREMITIES: moves all 4 NEUROLOGICAL: no focal deficits PSYCHOLOGICAL: calm, cooperative ASSESSMENT AND PLAN: Mr. 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 He was admitted for abdominal pain, likely due to fecal impaction. He is now comfort care status, awaiting placement into hospice. 1. Small cell lung ca: comfort measures. Pending placement into hospice. 2. Constipation: bowel regimen 3. Dyspnea: morphine sulfate prn, duonebs 4. nausea: zofran 4 mg q6h prn, scopolamine topical, bentyl 5. anxiety: lorazepam 0.5 mg 6. urinary retention: Has quinones DISPOSITION: comfort measures, hospice placement VS,Fishbone, I+O VS, Fishbone, I+O Vital Signs Date Time Temp Pulse Resp B/P (MAP) Pulse Ox O2 Delivery O2 Flow Rate FiO2 07/23/20 05:50 18 07/22/20 21:00 2.0 07/22/20 20:26 108/78 07/20/20 21:56 Room Air 07/18/20 19:27 110 I&O- Last 24 Hours up to 6 AM 07/23/20 05:59 Intake Total 220 ml Output Total 325 ml Balance -105 ml ESTELLE CEVALLOS MD Jul 23, 2020 14:37
[2020-07-23] MEDS: TERAZOSIN 5 MG CAP PO SCH (20:36)
[2020-07-24] MEDS: IPRATROPIUM 0.5MG/ALBUTEROL 2.5MG INH SOL UD 3ML (DUONEB) INH SCH ×4 (01:07→20:00)
[2020-07-24] MEDS: LORazepam 0.5 MG TAB PO PRN ×4 (01:12→23:18)
[2020-07-24] MEDS: MORPHINE 10MG/0.5ML ORAL CONCENTRATE SOLUTION U/D PO PRN ×6 (01:13→23:18)
[2020-07-24] MEDS: SENNA 8.6 MG TAB (SENOKOT) PO SCH ×2 (08:39→20:07)
[2020-07-24] MEDS: DOCUSATE SODIUM 100 MG CAP PO SCH ×2 (08:39→20:07)
[2020-07-24] MEDS: OMEPRAZOLE 20 MG CAP PO SCH (08:39)
[2020-07-24] MEDS: LACTULOSE 20 GM/30 ML SYRUP UD PO SCH (08:40)
[2020-07-24] MEDS: TERAZOSIN 5 MG CAP PO SCH ×2 (20:09→21:00)
[2020-07-25] MEDS: IPRATROPIUM 0.5MG/ALBUTEROL 2.5MG INH SOL UD 3ML (DUONEB) INH SCH ×4 (01:05→20:21)
[2020-07-25] MEDS: OMEPRAZOLE 20 MG CAP PO SCH (09:00)
[2020-07-25] MEDS: SENNA 8.6 MG TAB (SENOKOT) PO SCH ×2 (09:00→22:04)
[2020-07-25] MEDS: LACTULOSE 20 GM/30 ML SYRUP UD PO SCH (09:00)
[2020-07-25] MEDS: DOCUSATE SODIUM 100 MG CAP PO SCH ×2 (09:00→22:04)
[2020-07-25] MEDS: LORazepam 0.5 MG TAB PO PRN ×2 (10:07→17:26)
[2020-07-25] MEDS: MORPHINE 10MG/0.5ML ORAL CONCENTRATE SOLUTION U/D PO PRN ×4 (10:08→22:12)
[2020-07-25] MEDS: TERAZOSIN 5 MG CAP PO SCH (22:07)
[2020-07-26] MEDS: IPRATROPIUM 0.5MG/ALBUTEROL 2.5MG INH SOL UD 3ML (DUONEB) INH SCH ×4 (01:50→18:41)
[2020-07-26 07:02] LABS: HEMATOCRIT 30.6 % (42.0-52.0); HEMOGLOBIN 10.4 g/dl (13.5-17.5); MEAN CORPUSCULAR HEMOGLOBIN 32.5 pg (27.0-33.0); MEAN CORPUSCULAR VOLUME 95.6 fl (80.0-96.0); PLATELET COUNT, AUTOMATED 386 10^3/uL (150-450); WHITE BLOOD COUNT 14.1 10^3/uL (4.0-10.0)
--- NOTE | 2020-07-26 08:49 | CR ---
DATE: 06/21/2020 HISTORY OF PRESENT ILLNESS: Mr. Azar Ndiaye is a 74-year-old man. The patient was admitted to the hospital after a syncopal episode. While in the hospital, the patient had an evaluation which included CT chest abdomen and pelvis and CT of his brain. On the CT of his chest, the patient was noted to have bilateral consolidations and mediastinal adenopathy and right hilar adenopathy. On CT of the abdomen, the patient was found to have multiple liver lesions. The patient had a biopsy of his liver and reportedly the biopsy of the liver is coming back as positive for small cell carcinoma. PAST MEDICAL HISTORY: The patient has had a history of right ankle fracture and surgery for the right ankle fracture. The patient has a hiatal hernia. FAMILY HISTORY: The patient does say that one of his grandfathers from cancer and he believes that both of his grandmothers have cancer. REVIEW OF SYSTEMS: Constitutional: Patient has complained of a 20 pound weight loss this year and patient is having difficulty eating. HEENT: Patient has poor vision, patient is legally blind. Cardiovascular: The patient has not been having any cardiac type chest pains. Pulmonary: Patient has been having shortness of breath. Gastrointestinal (GI): Patient does have a history of acid reflux. PHYSICAL EXAMINATION: Patient had a temperature of 97.6, blood pressure 143/84. General: He is awake and alert. Patient was seen lying in bed. Head: Normal. Eyes: Extraocular motion intact. Lungs: Bilateral breath sounds were present. Cardiac: Appeared regular at the time of my exam. Abdomen: Soft. Extremities: No peripheral edema. IMPRESSION: This is a 74-year-old gentleman with newly diagnosed small cell cancer. Patient has what appears to be extensive disease with extensive infiltration of his liver. Patient has a poor performance status. PLAN: Plan from oncology would be to bring the patient to the office and offer him combination chemotherapy. MTDD
--- NOTE | 2020-07-26 08:52 | CR ---
DATE: 06/19/2020 HISTORY OF PRESENT ILLNESS: The patient is a 74-year-old male who was seen for evaluation of abnormal imaging studies. He was admitted to the hospital with abdominal pain, nausea, vomiting, and syncope. He was seen at our office prior to admission to the hospital for preoperative evaluation in light of needed hiatal hernia surgery. MEDICAL HISTORY: The patients past medical history includes 30 years of tobacco exposure. He admits to only a quarter-pack of cigarettes each day, and he has not smoked since his admission to the hospital. He has a prior history of fibrotic lung disease, for which he was evaluated in 2011, complicated by bronchiectasis. He does admit to some daily cough and sputum production, but denies exertional dyspnea nor symptom-limiting dyspnea. He has no history of recurring bronchopulmonary infections. He has never been overcome by smoke or fumes. 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 No respiratory protection was worn. He reports no overwhelming smoke or fume exposures. He has never suffered a DVT nor a pulmonary embolism. He has no prior history of tuberculosis exposure, no recent significant foreign travel, owns no unusual pets, and partakes in no uncommon hobbies which would expose him to respiratory irritants. PAST MEDICAL HISTORY: Includes benign prostate hypertrophy, gastroesophageal reflux disease felt related to a hiatal hernia. MEDICATIONS: Prior to admission to the hospital included omeprazole, terazosin, and Meloxicam. He has no medication allergies. FAMILY HISTORY: Non-contributory to the current illness. REVIEW OF SYSTEMS: Constitutional: He notes some weight loss, though he cannot quantify it. He has some food aversion and early satiety. HEENT: His vision is poor. He has no impairment of smell or taste. Cardiovascular: No history of anginal-type chest pain, orthopnea, paroxysmal nocturnal dyspnea, or claudication. A recent stress test was performed in preparation for his hiatal hernia surgery and the results were favorable, according to the patient. Pulmonary: See above. GI: He has a long history of acid reflux disease and a known hiatal hernia. There is no history of hepatitis, pancreatitis, or gallbladder disease. : There is a history of benign prostatic hypertrophy for which he takes medications. Endocrine: There is no history of diabetes or thyroid disease. Dermatalogic: No psoriasis or pruritic skin lesions. Hematologic: No easy bruising or bleeding. Neurologic: No history of stroke or seizure. Musculoskeletal: He has some problems with his right hand related to a remote injury. PHYSICAL EXAMINATION: GENERAL: He is awake, alert, and oriented. His affect and mood are appropriate. Nutrition and hygiene are good. VITAL SIGNS: Temperature 100.4, pulse rate 106, respirations 26, blood pressure 132/91. HEENT: His visual acuity is poor. His oral mucosa is pink. NECK: Supple. No meningismus. There is no adenopathy or jugular venous distention. Carotid upstrokes sluggish, but no bruit. HEART: Regular without appreciable murmur. RESPIRATORY: Breath sounds are diminished, particularly on the right side and coarse with some inspiratory crepitance in the bases bilaterally. Chest is symmetric and moves symmetrically. ABDOMEN: Soft with intact bowel sounds. There is no enlargement of the liver or spleen. No bruit or enlarged vessels of the abdomen. EXTREMITIES: Free of significant edema. Muscle tone is diminished. DIAGNOSTIC STUDIES: I reviewed his lab and x-ray studies. Spirometry was performed in the office prior to his admission to the hospital. The forced vital capacity is 2.65 L, FEV1 of 1.93 L 73% of predicted. Chest CT shows some chronic appearing fibrosis peripherally, bulky adenopathy in the mediastinum, and a right lung mass that does not appear to be obstructive, but some atelectactic changes of the right base. Report of the x-ray is not available at the time of his dictation. IMPRESSION: Abnormal x-rays. The patient has mediastinal adenopathy, a lung mass, and liver masses on his CT. Pulmonary fibrosis, stable. Right lower lobe atelectasis/infiltrate. RECOMMENDATIONS: I have reviewed the case with the attending Hospitalist and have recommended interventional radiology be involved for the performance of a biopsy of his liver lesion. This would be the most direct means of establishing a definitive diagnosis. Should the liver biopsy reveal nondiagnostic tissue, then fiberoptic bronchoscopy with endobronchial ultrasound could be considered. Further recommendations will be pending the results of this test. Thank you for allowing me to consult in the care of this patient. If there are questions, please do not hesitate to contact me. CECELIA
[2020-07-26] MEDS: MORPHINE 10MG/0.5ML ORAL CONCENTRATE SOLUTION U/D PO PRN ×2 (09:06→18:23)
[2020-07-26] MEDS: LACTULOSE 20 GM/30 ML SYRUP UD PO SCH (09:06)
[2020-07-26] MEDS: OMEPRAZOLE 20 MG CAP PO SCH (09:06)
[2020-07-26] MEDS: DOCUSATE SODIUM 100 MG CAP PO SCH ×2 (09:06→22:03)
[2020-07-26] MEDS: SENNA 8.6 MG TAB (SENOKOT) PO SCH ×2 (09:07→22:04)
[2020-07-26] MEDS: IPRATROPIUM 0.5MG/ALBUTEROL 2.5MG INH SOL UD 3ML (DUONEB) INH PRN (15:35)
[2020-07-26] MEDS: LORazepam 0.5 MG TAB PO PRN (18:23)
[2020-07-26] MEDS: TERAZOSIN 5 MG CAP PO SCH (22:04)
[2020-07-27] MEDS: MORPHINE 10MG/0.5ML ORAL CONCENTRATE SOLUTION U/D PO PRN ×4 (02:28→21:08)
[2020-07-27] MEDS: LORazepam 0.5 MG TAB PO PRN ×3 (06:26→21:08)
[2020-07-27] MEDS: IPRATROPIUM 0.5MG/ALBUTEROL 2.5MG INH SOL UD 3ML (DUONEB) INH SCH ×3 (07:10→20:00)
[2020-07-27] MEDS: LACTULOSE 20 GM/30 ML SYRUP UD PO SCH (10:16)
[2020-07-27] MEDS: SENNA 8.6 MG TAB (SENOKOT) PO SCH ×2 (10:16→21:08)
[2020-07-27] MEDS: DOCUSATE SODIUM 100 MG CAP PO SCH ×2 (10:19→21:08)
[2020-07-27] MEDS: OMEPRAZOLE 20 MG CAP PO SCH (10:19)
[2020-07-27] MEDS: TERAZOSIN 5 MG CAP PO SCH (21:00)
[2020-07-28] MEDS: IPRATROPIUM 0.5MG/ALBUTEROL 2.5MG INH SOL UD 3ML (DUONEB) INH SCH ×4 (00:47→19:45)
[2020-07-28] MEDS: MORPHINE 10MG/0.5ML ORAL CONCENTRATE SOLUTION U/D PO PRN ×4 (00:49→20:02)
[2020-07-28] MEDS: LORazepam 0.5 MG TAB PO PRN ×2 (01:57→20:02)
[2020-07-28 07:33] LABS: HEMATOCRIT 30.2 % (42.0-52.0); HEMOGLOBIN 9.9 g/dl (13.5-17.5); MEAN CORPUSCULAR HEMOGLOBIN 31.7 pg (27.0-33.0); MEAN CORPUSCULAR HGB CONC 32.8 g/dl (32.0-36.5); MEAN CORPUSCULAR VOLUME 96.8 fl (80.0-96.0); PLATELET COUNT, AUTOMATED 450 10^3/uL (150-450); RED BLOOD COUNT 3.12 10^6/uL (4.30-6.10); WHITE BLOOD COUNT 11.3 10^3/uL (4.0-10.0)
[2020-07-28] MEDS: DOCUSATE SODIUM 100 MG CAP PO SCH ×2 (10:05→20:02)
[2020-07-28] MEDS: OMEPRAZOLE 20 MG CAP PO SCH (10:05)
[2020-07-28] MEDS: LACTULOSE 20 GM/30 ML SYRUP UD PO SCH (10:05)
[2020-07-28] MEDS: SENNA 8.6 MG TAB (SENOKOT) PO SCH ×2 (10:05→20:02)
[2020-07-28] MEDS: TERAZOSIN 5 MG CAP PO SCH (19:59)
--- NOTE | 2020-07-28 20:03 | IPNPDOC ---
Date Seen The patient was seen on 07/28/20. Progress Note SUBJECTIVE: no acute events overnight. Having BMs every 2-3 days. OB improved. OBJECTIVE PHYSICAL EXAMINATION: VITAL SIGNS: Please see below. GENERAL: no signs of acute distress CARDIOVASCULAR: S1, S2 present RESPIRATORY: CTAB. ABDOMINAL: soft, non tender EXTREMITIES: moves all 4 NEUROLOGICAL: no focal deficits PSYCHOLOGICAL: calm, cooperative ASSESSMENT AND PLAN: Mr. 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 He was admitted for abdominal pain, likely due to fecal impaction. He is now comfort care status, awaiting placement into hospice. 1. Small cell lung ca: comfort measures. Pending placement into hospice. 2. Constipation: bowel regimen 3. Dyspnea: morphine sulfate prn, duonebs 4. nausea: zofran 4 mg q6h prn, scopolamine topical, bentyl 5. anxiety: lorazepam 0.5 mg 6. urinary retention: Has quinones 7. back pain: morphine sulfate prn, repositioning. DISPOSITION: comfort measures, hospice placement VS, I&O, 24H, [facility] Vital Signs/I&O Vital Signs Date Time Temp Pulse Resp B/P (MAP) Pulse Ox O2 Delivery O2 Flow Rate FiO2 07/28/20 19:59 104/73 07/28/20 14:25 20 07/28/20 10:05 2.0 07/27/20 04:59 92 Nasal Cannula I&O- Last 24 Hours up to 6 AM 07/28/20 06:00 Intake Total 420 ml Output Total 700 ml Balance -280 ml ROLAN KITCHEN MD Jul 28, 2020 20:03
[2020-07-29] MEDS: MORPHINE 10MG/0.5ML ORAL CONCENTRATE SOLUTION U/D PO PRN ×5 (00:45→20:11)
[2020-07-29] MEDS: LORazepam 0.5 MG TAB PO PRN ×3 (00:45→20:11)
[2020-07-29] MEDS: IPRATROPIUM 0.5MG/ALBUTEROL 2.5MG INH SOL UD 3ML (DUONEB) INH SCH ×4 (01:14→19:32)
[2020-07-29] MEDS: NORCO, ANEXSIA 5/325MG TABLET (HYDROcodone/ACETAMINOPHEN) PO PRN (05:07)
[2020-07-29] MEDS: DOCUSATE SODIUM 100 MG CAP PO SCH ×2 (09:45→20:12)
[2020-07-29] MEDS: SENNA 8.6 MG TAB (SENOKOT) PO SCH ×2 (09:45→20:11)
[2020-07-29] MEDS: LACTULOSE 20 GM/30 ML SYRUP UD PO SCH (09:45)
[2020-07-29] MEDS: OMEPRAZOLE 20 MG CAP PO SCH (09:45)
[2020-07-29] MEDS: TERAZOSIN 5 MG CAP PO SCH (19:27)
[2020-07-30] MEDS: IPRATROPIUM 0.5MG/ALBUTEROL 2.5MG INH SOL UD 3ML (DUONEB) INH SCH ×4 (00:37→19:34)
[2020-07-30] MEDS: LORazepam 0.5 MG TAB PO PRN ×4 (02:00→16:50)
[2020-07-30] MEDS: MORPHINE 10MG/0.5ML ORAL CONCENTRATE SOLUTION U/D PO PRN ×6 (02:01→20:43)
[2020-07-30] MEDS: DOCUSATE SODIUM 100 MG CAP PO SCH ×2 (08:10→20:43)
[2020-07-30] MEDS: OMEPRAZOLE 20 MG CAP PO SCH (08:10)
[2020-07-30] MEDS: LACTULOSE 20 GM/30 ML SYRUP UD PO SCH (08:10)
[2020-07-30] MEDS: SENNA 8.6 MG TAB (SENOKOT) PO SCH ×2 (08:10→20:43)
[2020-07-30] MEDS: TERAZOSIN 5 MG CAP PO SCH (20:44)
[2020-07-31] MEDS: LORazepam 0.5 MG TAB PO PRN ×5 (01:03→20:41)
[2020-07-31] MEDS: MORPHINE 10MG/0.5ML ORAL CONCENTRATE SOLUTION U/D PO PRN ×6 (01:03→20:41)
[2020-07-31] MEDS: IPRATROPIUM 0.5MG/ALBUTEROL 2.5MG INH SOL UD 3ML (DUONEB) INH SCH ×4 (01:16→18:36)
[2020-07-31] MEDS: SENNA 8.6 MG TAB (SENOKOT) PO SCH ×2 (09:20→20:40)
[2020-07-31] MEDS: LACTULOSE 20 GM/30 ML SYRUP UD PO SCH (09:20)
[2020-07-31] MEDS: DOCUSATE SODIUM 100 MG CAP PO SCH ×2 (09:20→20:40)
[2020-07-31] MEDS: OMEPRAZOLE 20 MG CAP PO SCH (09:20)
[2020-07-31 14:06] LABS: ALBUMIN 2.6 GM/DL (3.2-5.2); ALT/SGPT 22 U/L (12-78); BILIRUBIN,TOTAL 0.2 MG/DL (0.2-1.0); BLOOD UREA NITROGEN 31 MG/DL (7-18); CALCIUM LEVEL 8.2 MG/DL (8.8-10.2); CARBON DIOXIDE LEVEL 23 MEQ/L (21-32); CHLORIDE LEVEL 107 MEQ/L (98-107); CREATININE FOR GFR 0.93 MG/DL (0.70-1.30); GLOMERULAR FILTRATION RATE > 60.0 (>42); GLUCOSE, FASTING 94 MG/DL (70-100); MAGNESIUM LEVEL 2.2 MG/DL (1.8-2.4); POTASSIUM SERUM 3.7 MEQ/L (3.5-5.1); SODIUM LEVEL 139 MEQ/L (136-145); TOTAL PROTEIN 6.3 GM/DL (6.4-8.2)
[2020-07-31 20:41] VITALS: BP 122/87
[2020-07-31] MEDS: TERAZOSIN 5 MG CAP PO SCH (20:41)
[2020-08-01] MEDS: IPRATROPIUM 0.5MG/ALBUTEROL 2.5MG INH SOL UD 3ML (DUONEB) INH SCH ×4 (00:41→17:58)
[2020-08-01] MEDS: MORPHINE 10MG/0.5ML ORAL CONCENTRATE SOLUTION U/D PO PRN ×6 (01:38→22:46)
[2020-08-01] MEDS: LACTULOSE 20 GM/30 ML SYRUP UD PO SCH (09:00)
[2020-08-01] MEDS: DOCUSATE SODIUM 100 MG CAP PO SCH ×2 (09:00→22:45)
[2020-08-01] MEDS: SENNA 8.6 MG TAB (SENOKOT) PO SCH ×2 (09:00→22:42)
[2020-08-01] MEDS: OMEPRAZOLE 20 MG CAP PO SCH (09:00)
[2020-08-01] MEDS: LORazepam 0.5 MG TAB PO PRN ×3 (09:55→19:29)
[2020-08-01] MEDS: NORCO, ANEXSIA 5/325MG TABLET (HYDROcodone/ACETAMINOPHEN) PO PRN ×2 (18:25→22:46)
[2020-08-01] MEDS: TERAZOSIN 5 MG CAP PO SCH (22:46)
[2020-08-02] MEDS: IPRATROPIUM 0.5MG/ALBUTEROL 2.5MG INH SOL UD 3ML (DUONEB) INH SCH ×4 (01:09→20:24)
[2020-08-02] MEDS: MORPHINE 10MG/0.5ML ORAL CONCENTRATE SOLUTION U/D PO PRN ×9 (01:18→22:45)
[2020-08-02] MEDS: LORazepam 0.5 MG TAB PO PRN ×4 (04:19→22:45)
[2020-08-02] MEDS: NORCO, ANEXSIA 5/325MG TABLET (HYDROcodone/ACETAMINOPHEN) PO PRN ×2 (04:24→10:30)
[2020-08-02] MEDS: DOCUSATE SODIUM 100 MG CAP PO SCH ×2 (09:00→21:00)
[2020-08-02] MEDS: LACTULOSE 20 GM/30 ML SYRUP UD PO SCH (09:00)
[2020-08-02] MEDS ORDERED: LORazepam 0.5 MG TAB PO SCH (09:00)
[2020-08-02] MEDS: SENNA 8.6 MG TAB (SENOKOT) PO SCH ×2 (09:05→21:00)
[2020-08-02] MEDS: OMEPRAZOLE 20 MG CAP PO SCH (09:05)
--- NOTE | 2020-08-02 10:53 | IPNPDOC ---
Subjective Date Seen The patient was seen on 08/02/20. Subjective Chief Complaint/HPI Mr. 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 He is now on comfort care pending placement for hospice. This morning, he appeared more agitated and short of breath. He has been getting morphine frequently, but not Ativan. He may not know to ask for Ativan when needed. Discussed comfort plan with nurse Other systems He was not able to speak with me about his symptoms. He was agitated and appeared uncomfortable. Objective Physical Examination General Exam: Positive: Mild Distress; Negative: Cooperative Neck Exam: Positive: Supple Psych Exam: Positive: Anxiety Assessment /Plan Assessment Mr. Ndiaye is a 74 year old male with metastatic disease initially here with abdominal pain, but now comfort care. He is pending Hospice placement Plan/VTE VTE Prophylaxis Ordered?: No VTE Exclusion Mechanical Proph: Other (Comfort measures only) VTE Exclusion Pharmacological: Other (Comfort measures only) Plan 1. Small cell lung carcinoma with metastasis. Comfort measures. Pending placement into hospice. 2. Constipation: bowel regimen 3. Dyspnea: morphine sulfate PRN, duonebs 4. Nausea: Zofran PRN, scopolamine topical, bentyl 5. Anxiety: lorazepam 0.5 mg PRN 6. Urinary retention: quinones 7. back pain: Today increased morphine from 10mg PO to 15mg PO, repositioning. VS, I&O, 24H, Fishbone Vital Signs/I&O Vital Signs Date Time Temp Pulse Resp B/P (MAP) Pulse Ox O2 Delivery O2 Flow Rate FiO2 08/02/20 06:36 Room Air 08/01/20 18:25 18 07/31/20 21:00 2.0 07/31/20 20:41 122/87 07/27/20 04:59 92 I&O- Last 24 Hours up to 6 AM 08/02/20 06:00 Intake Total 260 ml Output Total 370 ml Balance -110 ml SHILOH BRAR DO Aug 02, 2020 10:53
[2020-08-02] MEDS: TERAZOSIN 5 MG CAP PO SCH (21:00)
[2020-08-03] MEDS: IPRATROPIUM 0.5MG/ALBUTEROL 2.5MG INH SOL UD 3ML (DUONEB) INH SCH ×4 (02:00→20:00)
[2020-08-03] MEDS: MORPHINE 10MG/0.5ML ORAL CONCENTRATE SOLUTION U/D PO PRN ×6 (04:12→21:49)
[2020-08-03] MEDS: OMEPRAZOLE 20 MG CAP PO SCH (10:18)
[2020-08-03] MEDS: LACTULOSE 20 GM/30 ML SYRUP UD PO SCH (10:18)
[2020-08-03] MEDS: DOCUSATE SODIUM 100 MG CAP PO SCH ×2 (10:18→21:00)
[2020-08-03] MEDS: SENNA 8.6 MG TAB (SENOKOT) PO SCH ×2 (10:18→21:00)
[2020-08-03] MEDS: LORazepam 0.5 MG TAB PO PRN (10:19)
[2020-08-03] MEDS ORDERED: FENTANYL REMOVAL DOCUMENTATION MISC XX SCH (11:00)
[2020-08-03] MEDS ORDERED: fentaNYL 50 MCG/HR PATCH TOP SCH (11:00)
[2020-08-03] MEDS: LORazepam 1 MG TAB PO PRN ×2 (15:14→21:48)
[2020-08-03] MEDS: TERAZOSIN 5 MG CAP PO SCH (21:00)
[2020-08-04] MEDS: MORPHINE 10MG/0.5ML ORAL CONCENTRATE SOLUTION U/D PO PRN ×5 (00:22→18:41)
[2020-08-04] MEDS: LORazepam 1 MG TAB PO PRN (01:50)
[2020-08-04] MEDS: IPRATROPIUM 0.5MG/ALBUTEROL 2.5MG INH SOL UD 3ML (DUONEB) INH SCH ×4 (01:56→20:17)
[2020-08-04] MEDS ORDERED: LORazepam 2 MG/ML VIAL As Ordered ONE ×4 (04:07→17:13)
[2020-08-04] MEDS: LORazepam 2 MG/ML VIAL IV PRN ×6 (04:11→21:48)
[2020-08-04] MEDS: LACTULOSE 20 GM/30 ML SYRUP UD PO SCH (08:43)
[2020-08-04] MEDS: DOCUSATE SODIUM 100 MG CAP PO SCH ×2 (08:43→20:00)
[2020-08-04] MEDS: SENNA 8.6 MG TAB (SENOKOT) PO SCH ×2 (08:44→20:00)
[2020-08-04] MEDS: OMEPRAZOLE 20 MG CAP PO SCH (08:44)
[2020-08-04] MEDS ORDERED: ACETAMINOPHEN 650 MG SUPP PR PRN (10:30)
--- NOTE | 2020-08-04 13:04 | IPNPDOC ---
Subjective Date Seen The patient was seen on 08/04/20. Subjective Chief Complaint/HPI Mr. 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 He is now on comfort care pending placement for hospice. Yesterday, he was started on a fentanyl patch with PRN morphine for breakthrough. He did okay during the daytime, but last night, he appeared agitated. He required IV placement. IV ativan was given which helped with his agitation. This morning he was seen sleeping. Appears comfortable. Objective Physical Examination General Exam: Positive: No Acute Distress Neck Exam: Negative: thyromegaly Extremity Exam: Negative: Cyanosis Assessment /Plan Assessment Mr. Ndiaye is a 74 year old male with metastatic disease initially here with abdominal pain, but now comfort care. He is pending Hospice placement Plan/VTE VTE Prophylaxis Ordered?: No VTE Exclusion Mechanical Proph: Other (Comfort measures only) VTE Exclusion Pharmacological: Other (Comfort measures only) Plan 1. Small cell lung carcinoma with metastasis. Comfort measures. Pending placement into hospice. 2. Constipation: bowel regimen 3. Dyspnea: morphine PRN, duonebs 4. Nausea: Zofran PRN, scopolamine topical, bentyl 5. Anxiety: lorazepam PRN 6. Urinary retention: quinones 7. back pain: Fentanyl patch plus morphine for breakthrough pain. VS, I&O, 24H, [facility] Vital Signs/I&O Vital Signs Date Time Temp Pulse Resp B/P (MAP) Pulse Ox O2 Delivery O2 Flow Rate FiO2 08/04/20 10:33 102.0 16 08/04/20 09:00 2.0 08/03/20 21:49 Nasal Cannula 07/31/20 20:41 122/87 I&O- Last 24 Hours up to 6 AM 08/04/20 06:00 Intake Total 0 ml Output Total 75 ml Balance -75 ml SHILOH BRAR DO Aug 04, 2020 13:04
[2020-08-04] MEDS: TERAZOSIN 5 MG CAP PO SCH (20:00)
[2020-08-04] MEDS: ATROPINE SULFATE 1% OP SOLN 2 ML BTL XX PRN (21:48)
[2020-08-04] MEDS ORDERED: MORPHINE 2 MG/ML 1ML VIAL (J2270) IV PRN (22:15)
[2020-08-05] MEDS: IPRATROPIUM 0.5MG/ALBUTEROL 2.5MG INH SOL UD 3ML (DUONEB) INH SCH ×2 (02:00→07:21)
[2020-08-05] MEDS: ATROPINE SULFATE 1% OP SOLN 2 ML BTL XX PRN (02:40)
--- NOTE | 2020-08-05 19:58 | DS.PDOC ---
Discharge Summary General Date of Admission Jun 17, 2020 at 21:48 Date of Discharge Aug 05, 2020 Specialist/Consultants [facility], Dr. Nevarez Oncology, Dr. Han Discharge Summary PROCEDURES PERFORMED DURING STAY: [None]. ADMITTING DIAGNOSES: 1. Small cell lung cancer 2. History of tobacco abuse DISCHARGE DIAGNOSES: 1. Small cell lung cancer with liver metastasis 2. History of tobacco abuse COMPLICATIONS/CHIEF COMPLAINT: Shortness Of Breath. HISTORY OF PRESENT ILLNESS and HOSPITAL COURSE: Of note, parts of the discharge/ summary is missing as patient was admitted when computer system was down. Unable to see H&P and prior notes. Discharge/ summary put together to the best of my knowledge. Mr. Ndiaye is a 74 year old male who initially presented to the hospital for abdominal pain, nausea, vomiting, and syncope. During the hospitalization, given significant deconditioning and poor prognosis, he was made comfort care status and awaited placement into hospice. During that time, he was made comfortable. On 08/05/2020 at 8:15AM, patient was declared . HCP Juan Zelaya was contacted and notified of patient's passing. Total time spent on discharge summary 25 minutes. Vital Signs/I&Os Vital Signs Date Time Temp Pulse Resp B/P (MAP) Pulse Ox O2 Delivery O2 Flow Rate FiO2 08/05/20 00:14 24 08/04/20 21:00 2.0 08/04/20 11:15 100.8 08/03/20 21:49 Nasal Cannula 07/31/20 20:41 122/87 I&O- Last 24 Hours up to 6 AM 08/05/20 06:00 Intake Total 20 ml Output Total 650 ml Balance -630 ml Discharge Medications Scheduled Meloxicam (Meloxicam) 15 Mg Tablet, 15 MG PO DAILY, (Reported) Omeprazole (Omeprazole) 20 Mg Cap, 20 MG PO QAM, (Reported) Terazosin HCl (Terazosin HCl) 5 Mg Capsule, 5 MG PO QHS, (Reported) Allergies Coded Allergies: No Known Allergies (Verified Allergy, Unknown, 06/10/20) SHILOH BRAR DO Aug 05, 2020 19:58
--- NOTE | 2020-08-10 07:47 | ECGEPIP ---
SINUS TACHYCARDIA PRWP SEE SCANNED DOWNTIME REPORT MTDD
--- NOTE | 2020-08-10 11:20 | REP ---
ULTRASOUND-GUIDED LIVER BIOPSY: The procedure was performed under the direct supervision of Dr. Gates. The risks and benefits of the procedure were explained to the patient and informed consent was obtained. PROCEDURE: The lesion in the left lobe of the liver was localized using ultrasound guidance. The skin was prepped and draped in a sterile fashion. 1% lidocaine was used as a local anesthetic. Using ultrasound guidance, a 19/20 gauge coaxial needle biopsy system was inserted and advanced into the lesion. Six core biopsy samples were obtained and sent to the lab. The patient tolerated the procedure well and there were no immediate complications. After the appropriate amount of monitored convalescence, the patient was discharged from the department. CECELIA
[2020-08-11 15:12] LABS: HEMATOCRIT 27.5 % (42.0-52.0); HEMOGLOBIN 9.2 g/dl (13.5-17.5); MEAN CORPUSCULAR HEMOGLOBIN 31.9 pg (27.0-33.0); MEAN CORPUSCULAR HGB CONC 33.5 g/dl (32.0-36.5); MEAN CORPUSCULAR VOLUME 95.5 fl (80.0-96.0); PLATELET COUNT, AUTOMATED 422 10^3/uL (150-450); RED BLOOD COUNT 2.88 10^6/uL (4.30-6.10); WHITE BLOOD COUNT 12.9 10^3/uL (4.0-10.0)
[2020-08-12 19:35] LABS: BLOOD UREA NITROGEN 16 MG/DL (7-18); CALCIUM LEVEL 8.3 MG/DL (8.8-10.2); CARBON DIOXIDE LEVEL 28 MEQ/L (21-32); CHLORIDE LEVEL 105 MEQ/L (98-107); CREATININE FOR GFR 0.78 MG/DL (0.70-1.30); GLOMERULAR FILTRATION RATE > 60.0 (>42); GLUCOSE, FASTING 107 MG/DL (70-100); POTASSIUM SERUM 4.1 MEQ/L (3.5-5.1); SODIUM LEVEL 137 MEQ/L (136-145)
[2020-08-13 14:28] LABS: HEMATOCRIT 29.2 % (42.0-52.0); HEMOGLOBIN 9.7 g/dl (13.5-17.5); MEAN CORPUSCULAR HGB CONC 33.2 g/dl (32.0-36.5); MEAN CORPUSCULAR VOLUME 96.4 fl (80.0-96.0); PLATELET COUNT, AUTOMATED 494 10^3/uL (150-450); RED BLOOD COUNT 3.03 10^6/uL (4.30-6.10); WHITE BLOOD COUNT 13.8 10^3/uL (4.0-10.0)
[2020-08-15 09:56] LABS: HEMATOCRIT 28.2 % (42.0-52.0); HEMOGLOBIN 9.4 g/dl (13.5-17.5); MEAN CORPUSCULAR HEMOGLOBIN 32.2 pg (27.0-33.0); MEAN CORPUSCULAR HGB CONC 33.3 g/dl (32.0-36.5); MEAN CORPUSCULAR VOLUME 96.6 fl (80.0-96.0); PLATELET COUNT, AUTOMATED 517 10^3/uL (150-450); RED BLOOD COUNT 2.92 10^6/uL (4.30-6.10)
[2020-08-15 20:26] LABS: HEMOGLOBIN 9.6 g/dl (13.5-17.5); MEAN CORPUSCULAR HEMOGLOBIN 31.7 pg (27.0-33.0); PLATELET COUNT, AUTOMATED 544 10^3/uL (150-450); RED BLOOD COUNT 3.03 10^6/uL (4.30-6.10); WHITE BLOOD COUNT 9.2 10^3/uL (4.0-10.0)
[2020-08-15 20:29] LABS: HEMATOCRIT 29.3 % (42.0-52.0); HEMOGLOBIN 9.5 g/dl (13.5-17.5); MEAN CORPUSCULAR HEMOGLOBIN 31.7 pg (27.0-33.0); MEAN CORPUSCULAR HGB CONC 32.4 g/dl (32.0-36.5); MEAN CORPUSCULAR VOLUME 97.7 fl (80.0-96.0); PLATELET COUNT, AUTOMATED 512 10^3/uL (150-450); WHITE BLOOD COUNT 11.1 10^3/uL (4.0-10.0)
--- NOTE | 2020-08-16 10:55 | ECGEPIP ---
[facility] Test Date: 2020-06-29 Pat Name: JENN WHITTINGTON Department: Room: K7249-25 Gender: Male Legal Librarian: : [id number] Requested By: ROLAN KITCHEN Order Number: [id number] Reading MD: Yuniel Bennett Measurements Intervals [place] Rate: 114 P: 10 RI: 140 QRS: 37 QRSD: 91 T: 0 QT: 320 QTc: 442 Interpretive Statements SINUS TACHYCARDIA WITH VENTRICULAR PREMATURE COMPLEX LOW VOLTAGE IN LIMB LEADS NONSPECIFIC T-WAVE ABNORMALITIES PRIOR TRACINGS N/A SEE SCANNED DOWNTIME REPORT
[2020-08-17 18:29] LABS: HEMATOCRIT 30.6 % (42.0-52.0); MEAN CORPUSCULAR HEMOGLOBIN 31.8 pg (27.0-33.0); MEAN CORPUSCULAR HGB CONC 32.7 g/dl (32.0-36.5); MEAN CORPUSCULAR VOLUME 97.5 fl (80.0-96.0); PLATELET COUNT, AUTOMATED 555 10^3/uL (150-450); RED BLOOD COUNT 3.14 10^6/uL (4.30-6.10); WHITE BLOOD COUNT 9.4 10^3/uL (4.0-10.0)
[2020-08-25 09:16] LABS: HEMATOCRIT 30.4 % (42.0-52.0); HEMOGLOBIN 9.8 g/dl (13.5-17.5); MEAN CORPUSCULAR HEMOGLOBIN 31.8 pg (27.0-33.0); MEAN CORPUSCULAR HGB CONC 32.2 g/dl (32.0-36.5); MEAN CORPUSCULAR VOLUME 98.7 fl (80.0-96.0); PLATELET COUNT, AUTOMATED 578 10^3/uL (150-450); RED BLOOD COUNT 3.08 10^6/uL (4.30-6.10); WHITE BLOOD COUNT 10.7 10^3/uL (4.0-10.0)
[2020-08-25 11:13] LABS: HEMATOCRIT 28.8 % (42.0-52.0); HEMOGLOBIN 9.5 g/dl (13.5-17.5); MEAN CORPUSCULAR HEMOGLOBIN 32.2 pg (27.0-33.0); MEAN CORPUSCULAR VOLUME 97.6 fl (80.0-96.0); PLATELET COUNT, AUTOMATED 553 10^3/uL (150-450); RED BLOOD COUNT 2.95 10^6/uL (4.30-6.10); WHITE BLOOD COUNT 8.8 10^3/uL (4.0-10.0)
[2020-09-02 14:35] LABS: HEMATOCRIT 29.3 % (42.0-52.0); HEMOGLOBIN 9.7 g/dl (13.5-17.5); MEAN CORPUSCULAR HEMOGLOBIN 31.9 pg (27.0-33.0); MEAN CORPUSCULAR HGB CONC 33.1 g/dl (32.0-36.5); MEAN CORPUSCULAR VOLUME 96.4 fl (80.0-96.0); PLATELET COUNT, AUTOMATED 541 10^3/uL (150-450); RED BLOOD COUNT 3.04 10^6/uL (4.30-6.10); WHITE BLOOD COUNT 10.2 10^3/uL (4.0-10.0)
[2020-09-02 14:40] LABS: URINE STREP PNEUMONIAE ANTIGEN SEE SEPARATE REPORT
[2020-09-02 14:41] LABS: LEGIONELLA ANTIGEN URINE SEE SEPARATE REPORT
[2020-09-12 09:48] LABS: ALBUMIN 2.3 GM/DL (3.2-5.2); ALT/SGPT 29 U/L (12-78); BILIRUBIN,TOTAL 0.2 MG/DL (0.2-1.0); BLOOD UREA NITROGEN 15 MG/DL (7-18); CALCIUM LEVEL 8.2 MG/DL (8.8-10.2); CARBON DIOXIDE LEVEL 25 MEQ/L (21-32); CHLORIDE LEVEL 107 MEQ/L (98-107); CREATININE FOR GFR 0.76 MG/DL (0.70-1.30); GLOMERULAR FILTRATION RATE > 60.0 (>42); GLUCOSE, FASTING 106 MG/DL (70-100); POTASSIUM SERUM 3.8 MEQ/L (3.5-5.1); SODIUM LEVEL 140 MEQ/L (136-145); TOTAL PROTEIN 5.5 GM/DL (6.4-8.2)
[2020-09-16 13:37] LABS: ALBUMIN 2.4 GM/DL (3.2-5.2); ALT/SGPT 29 U/L (12-78); BILIRUBIN,TOTAL 0.2 MG/DL (0.2-1.0); BLOOD UREA NITROGEN 16 MG/DL (7-18); CALCIUM LEVEL 8.4 MG/DL (8.8-10.2); CARBON DIOXIDE LEVEL 26 MEQ/L (21-32); CHLORIDE LEVEL 106 MEQ/L (98-107); CREATININE FOR GFR 0.77 MG/DL (0.70-1.30); GLOMERULAR FILTRATION RATE > 60.0 (>42); GLUCOSE, FASTING 118 MG/DL (70-100); POTASSIUM SERUM 4.1 MEQ/L (3.5-5.1); SODIUM LEVEL 139 MEQ/L (136-145); TOTAL PROTEIN 5.8 GM/DL (6.4-8.2)
[2020-09-17 10:03] LABS: BLOOD UREA NITROGEN 12 MG/DL (7-18); CALCIUM LEVEL 8.2 MG/DL (8.8-10.2); CARBON DIOXIDE LEVEL 28 MEQ/L (21-32); CHLORIDE LEVEL 108 MEQ/L (98-107); CREATININE FOR GFR 0.86 MG/DL (0.70-1.30); GLOMERULAR FILTRATION RATE > 60.0 (>42); GLUCOSE, FASTING 101 MG/DL (70-100); POTASSIUM SERUM 4.6 MEQ/L (3.5-5.1); SODIUM LEVEL 141 MEQ/L (136-145); TROPONIN I < 0.02 NG/ML (< 0.10)
[2020-09-17 16:41] LABS: ALBUMIN 2.4 GM/DL (3.2-5.2); ALT/SGPT 28 U/L (12-78); BILIRUBIN,TOTAL 0.2 MG/DL (0.2-1.0); BLOOD UREA NITROGEN 12 MG/DL (7-18); CALCIUM LEVEL 8.3 MG/DL (8.8-10.2); CARBON DIOXIDE LEVEL 27 MEQ/L (21-32); CHLORIDE LEVEL 107 MEQ/L (98-107); CREATININE FOR GFR 0.88 MG/DL (0.70-1.30); GLOMERULAR FILTRATION RATE > 60.0 (>42); GLUCOSE, FASTING 99 MG/DL (70-100); POTASSIUM SERUM 4.4 MEQ/L (3.5-5.1); SODIUM LEVEL 140 MEQ/L (136-145); TOTAL PROTEIN 5.6 GM/DL (6.4-8.2)
[2020-09-18 10:03] LABS: ALBUMIN 2.4 GM/DL (3.2-5.2); ALT/SGPT 28 U/L (12-78); BILIRUBIN,TOTAL 0.4 MG/DL (0.2-1.0); BLOOD UREA NITROGEN 13 MG/DL (7-18); CALCIUM LEVEL 8.6 MG/DL (8.8-10.2); CARBON DIOXIDE LEVEL 27 MEQ/L (21-32); CHLORIDE LEVEL 104 MEQ/L (98-107); CREATININE FOR GFR 0.74 MG/DL (0.70-1.30); GLOMERULAR FILTRATION RATE > 60.0 (>42); GLUCOSE, FASTING 106 MG/DL (70-100); POTASSIUM SERUM 4.1 MEQ/L (3.5-5.1); SODIUM LEVEL 136 MEQ/L (136-145); TOTAL PROTEIN 5.8 GM/DL (6.4-8.2)
[2020-09-18 11:08] LABS: ALBUMIN 2.4 GM/DL (3.2-5.2); ALT/SGPT 30 U/L (12-78); BILIRUBIN,TOTAL 0.2 MG/DL (0.2-1.0); BLOOD UREA NITROGEN 12 MG/DL (7-18); CALCIUM LEVEL 8.3 MG/DL (8.8-10.2); CARBON DIOXIDE LEVEL 26 MEQ/L (21-32); CHLORIDE LEVEL 106 MEQ/L (98-107); CREATININE FOR GFR 0.89 MG/DL (0.70-1.30); GLOMERULAR FILTRATION RATE > 60.0 (>42); GLUCOSE, FASTING 122 MG/DL (70-100); POTASSIUM SERUM 4.2 MEQ/L (3.5-5.1); SODIUM LEVEL 140 MEQ/L (136-145); TOTAL PROTEIN 5.8 GM/DL (6.4-8.2)
[2020-09-19 20:58] LABS: ALBUMIN 2.4 GM/DL (3.2-5.2); ALT/SGPT 28 U/L (12-78); BILIRUBIN,TOTAL 0.2 MG/DL (0.2-1.0); BLOOD UREA NITROGEN 12 MG/DL (7-18); CALCIUM LEVEL 8.2 MG/DL (8.8-10.2); CARBON DIOXIDE LEVEL 25 MEQ/L (21-32); CHLORIDE LEVEL 108 MEQ/L (98-107); CREATININE FOR GFR 0.82 MG/DL (0.70-1.30); GLOMERULAR FILTRATION RATE > 60.0 (>42); GLUCOSE, FASTING 114 MG/DL (70-100); POTASSIUM SERUM 4.3 MEQ/L (3.5-5.1); SODIUM LEVEL 141 MEQ/L (136-145); TOTAL PROTEIN 5.6 GM/DL (6.4-8.2)
[2020-09-24 23:12] LABS: BLOOD UREA NITROGEN 13 MG/DL (7-18); CALCIUM LEVEL 8.5 MG/DL (8.8-10.2); CARBON DIOXIDE LEVEL 25 MEQ/L (21-32); CHLORIDE LEVEL 108 MEQ/L (98-107); CREATININE FOR GFR 0.88 MG/DL (0.70-1.30); GLOMERULAR FILTRATION RATE > 60.0 (>42); GLUCOSE, FASTING 98 MG/DL (70-100); POTASSIUM SERUM 4.6 MEQ/L (3.5-5.1); SODIUM LEVEL 140 MEQ/L (136-145)
== END 2020-08-05 09:20 | disposition expired | DRG 180 ==
LOC: M ED 17:03 → M MSPAV 21:48
PROVIDERS: ADMIT Internal Medicine; ATTEND Internal Medicine
PROC: 0FB03ZX Excision of Liver, Percutaneous Approach, Diagnostic (ICD-10-PCS; principal; 2020-06-20)
DX: C34.91 Malignant neoplasm of unspecified part of right bronchus or lung (principal); J18.9 Pneumonia, unspecified organism; E46 Unspecified protein-calorie malnutrition; C78.7 Secondary malignant neoplasm of liver and intrahepatic bile duct; S32.019A Unspecified fracture of first lumbar vertebra, initial encounter for closed fracture; C78.1 Secondary malignant neoplasm of mediastinum; N40.1 Benign prostatic hyperplasia with lower urinary tract symptoms; K21.9 Gastro-esophageal reflux disease without esophagitis; K44.9 Diaphragmatic hernia without obstruction or gangrene; R63.4 Abnormal weight loss; J84.10 Pulmonary fibrosis, unspecified; K56.41 Fecal impaction; H54.8 Legal blindness, as defined in USA; Z51.5 Encounter for palliative care; Z66 Do not resuscitate; F41.9 Anxiety disorder, unspecified; R33.9 Retention of urine, unspecified; F17.210 Nicotine dependence, cigarettes, uncomplicated; J47.9 Bronchiectasis, uncomplicated; Z79.899 Other long term (current) drug therapy; X58.XXXA Exposure to other specified factors, initial encounter; Y92.9 Unspecified place or not applicable